=== PATIENT | male | born 1935 | race Caucasian/White ===

== ENCOUNTER 2017-06-23 18:18 | Inpatient (IN) | payer MEDICARE ==
[2017-06-23] MEDS ORDERED: Sodium Chloride 0.9% 1000 ML 1,000 ML IV SCH (19:00)
--- NOTE | 2017-06-23 19:03 | ERPHSYRPT ---
- History of Present Illness Time Seen by Provider: 06/23/17 18:45 Source: patient Exam Limitations: clinical condition Patient Subjective Stated Complaint: black stools since yesterday Triage Nursing Assessment: ambulated to room per self with . skin w/d, color slightly pale, resp easy. denies any dizziness or weakness. denies n/v. is on coumadin Physician History: PATIENT WITH A HISTORY OF ATRIAL FIBRILLATION, HYPERTENSION COMPLAINS OF BLACK STOOLS OVER THE PAST 2 DAYS. DENIES CHEST PAIN, DYSPNEA, ABDOMINAL PAIN, WEAKNESS OR DIZZINESS. Timing/Duration: yesterday Associated Symptoms: denies symptoms Allergies/Adverse Reactions: No Known Drug Allergies Allergy (Verified 06/23/17 18:37) Home Medications: Calcium Carbonate/Vitamin D3 [Calcium 600-Vit D3 200 Tablet] 1 each PO WEEKLY [History] Carvedilol 3.125 mg [Coreg 3.125 MG] 3.125 mg PO BID 04/30/12 [History] Timolol [Betimol] 1 drop OP BID 05/17/14 [History] Bimatoprost 0.01% [Lumigan 0.01% 2.5 ml] 2.5 ml OP HS 06/23/17 [History] Warfarin Sodium [Coumadin] 8 mg PO DAILY 06/23/17 [History] Lisinopril 20 mg [Zestril 20 MG] 20 mg PO DAILY 06/24/17 [History] Hx Tetanus, Diphtheria Vaccination/Date Given: No Hx Influenza Vaccination/Date Given: Yes (2015) Hx Pneumococcal Vaccination/Date Given: Yes - Review of Systems Constitutional: No Fever, No Chills Eyes: No Symptoms Ears, Nose, & Throat: No Symptoms Respiratory: No Symptoms, No Cough, No Dyspnea Cardiac: No Symptoms, No Chest Pain, No Edema, No Syncope Abdominal/Gastrointestinal: Melena, No Abdominal Pain, No Nausea, No Vomiting, No Diarrhea Genitourinary Symptoms: No Dysuria Musculoskeletal: No Symptoms, No Back Pain, No Neck Pain Skin: No Rash Neurological: No Dizziness, No Focal Weakness, No Sensory Changes Psychological: No Symptoms Endocrine: No Symptoms All Other Systems: Reviewed and Negative - Past Medical History Pertinent Past Medical History: Yes Neurological History: No Pertinent History ENT History: Macular Degeneration Cardiac History: Arrhythmia, Hypertension, Other Respiratory History: CHF Endocrine Medical History: Diabetes Type II Musculoskeletal History: Arthritis, Other GI Medical History: No Pertinent History History: No Pertinent History Psycho-Social History: No Pertinent History Male Reproductive Disorders: No Pertinent History Other Medical History: A FIB, 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 - Past Surgical History Past Surgical History: Yes Neuro Surgical History: No Pertinent History Cardiac: Cardiac Stent Respiratory: No Pertinent History Gastrointestinal: Appendectomy Genitourinary: No Pertinent History Musculoskeletal: No Pertinent History Male Surgical History: No Pertinent History Other Surgical History: CARDIAC STENT SEVERAL YEARS, pacemaker in place, 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 - Social History Smoking Status: Former smoker Exposure to second hand smoke: No Drug Use: none Patient Lives Alone: No - Nursing Vital Signs Nursing Vital Signs: Initial Vital Signs Temperature 97.9 F 06/23/17 18:32 Pulse Rate 76 06/23/17 18:32 Respiratory Rate 16 06/23/17 18:32 Blood Pressure 106/52 06/23/17 18:32 O2 Sat by Pulse Oximetry 98 06/23/17 18:32 Pain Scale Pain Intensity 0 - Physical Exam General Appearance: no apparent distress, alert Eye Exam: PERRL/EOMI, eyes nml inspection Ears, Nose, Throat Exam: normal ENT inspection, TMs normal, pharynx normal, moist mucous membranes Neck Exam: normal inspection, non-tender, supple, full range of motion Respiratory Exam: normal breath sounds, lungs clear, No respiratory distress Cardiovascular Exam: regular rate/rhythm, normal heart sounds, normal peripheral pulses Gastrointestinal/Abdomen Exam: soft, normal bowel sounds, No tenderness, No mass Rectal Exam: normal exam, normal rectal tone, black stool Back Exam: normal inspection, normal range of motion, No CVA tenderness, No vertebral tenderness Extremity Exam: normal inspection, normal range of motion, pelvis stable Neurologic Exam: alert, oriented x 3, cooperative, normal mood/affect, nml cerebellar function, nml station & gait, sensation nml, No motor deficits Skin Exam: normal color, warm, dry, No rash Lymphatic Exam: No adenopathy SpO2 Interpretation: normal SpO2: 98 Oxygen Delivery: Room Air - Course EKG Interpreted by Me: RATE, Sinus Rhythm (VENTRICULAR PACED RHYTHM RATE 70) Ordered Tests: Active Orders 24 hr Category Date Time Status Bedrest with BRP/BSC Activity 06/24/17 00:40 Active Admission/Status Order Care 06/24/17 00:40 Active Director Pharmaceutical STAT Care 06/23/17 20:04 Active Code Status Order Care 06/24/17 00:40 Active IV Care Q6H Care 06/24/17 00:40 Active IV Insertion STAT Care 06/23/17 18:55 Completed IV Insertion STAT Care 06/23/17 20:13 Completed Implement CHF Pathway Care 06/24/17 00:40 Active Oxygen-ED Only NASAL CANNULA 2 lpm Care 06/23/17 18:55 Completed Vital Signs Q1H Care 06/24/17 00:40 Active Weight,Daily Q24H Care 06/24/17 00:40 Active BMP AM.LAB Lab 06/24/17 05:08 Completed CBC AM.LAB Lab 06/24/17 05:08 Completed CBC W DIFF Stat Lab 06/23/17 19:10 Completed CBC W DIFF Stat Lab 06/23/17 21:00 Completed CMP Stat Lab 06/23/17 19:10 Completed Occult Blood,Stool Other Stat Lab 06/23/17 19:00 Completed PROTIME WITH INR Stat Lab 06/23/17 19:10 Completed TROPONIN Stat Lab 06/24/17 01:04 Completed EKG DAILY RT 06/24/17 00:40 Completed Oxygen NASAL CANNULA 2 lpm RT 06/24/17 00:40 Active Medication Summary Generic Name Dose Route Start Last Admin Trade Name Freq PRN Reason Stop Dose Admin Sodium Chloride 1,000 mls @ 100 mls/hr 06/23/17 20:15 06/23/17 20:29 Sodium Chloride 0.9% 1000 Ml IV 07/23/17 20:14 Not Given .Q10H STANISLAW Sodium Chloride 1,000 mls @ 50 mls/hr 06/23/17 22:39 06/23/17 23:45 Sodium Chloride 0.9% 1000 Ml IV 06/24/17 18:38 50 mls/hr .Q20H STA Administration Sodium Chloride 500 mls @ 500 mls/hr 06/24/17 03:18 06/24/17 03:27 Sodium Chloride 0.9% 500 Ml IV 06/24/17 04:17 500 mls/hr .Q1H ONE Administration Discontinued Medications Generic Name Dose Route Start Last Admin Trade Name Freq PRN Reason Stop Dose Admin Sodium Chloride 1,000 mls @ 100 mls/hr 06/23/17 19:00 06/23/17 19:10 Sodium Chloride 0.9% 1000 Ml IV 07/23/17 18:59 100 mls/hr .Q10H STANISLAW Administration Sodium Chloride 1,000 mls @ 500 mls/hr 06/23/17 19:50 06/23/17 20:00 Sodium Chloride 0.9% 1000 Ml IV 06/23/17 21:49 500 mls/hr .Q2H STA Administration Sodium Chloride 1,000 mls @ 250 mls/hr 06/23/17 20:30 06/23/17 20:33 Sodium Chloride 0.9% 1000 Ml IV 06/24/17 00:29 250 mls/hr .Q4H STA Administration Pantoprazole Sodium 40 mg 06/23/17 20:18 06/23/17 20:31 Protonix 40 Mg Iv IV 06/23/17 20:19 40 mg STAT ONE Administration Pantoprazole Sodium Confirm 06/23/17 20:27 Protonix 40 Mg Iv Administered 06/23/17 20:28 Dose 40 mg IV .[facility] ONE Phytonadione 10 mg 06/23/17 19:54 06/23/17 20:10 Vitamin K 10 Mg/Ml SQ 06/23/17 19:55 10 mg STAT ONE Administration Phytonadione Confirm 06/23/17 20:09 Vitamin K 10 Mg/Ml Administered 06/23/17 20:10 Dose 10 mg .ROUTE .STK-MED ONE Lab/Rad Data: Laboratory Result Diagrams 06/23/17 21:00 06/23/17 19:10 Laboratory Results 06/23/17 06/23/17 06/23/17 Range/Units 21:00 19:10 19:10 WBC 13.1 H (4.0-10.5) K/mm3 RBC 3.29 L (4.1-5.6) M/mm3 Hgb 9.8 L (12.5-18.0) gm/dl Hct 30.3 L (42-50) % MCV 92.1 (78-100) fl MCH 29.7 (26-32) pg MCHC 32.3 (32-36) g/dl RDW 13.7 (11.5-14.0) % Plt Count 171 (150-450) K/mm3 MPV 11.0 H (6-9.5) fl Gran % 65.2 (36.0-66.0) % Lymphocytes % 23.2 L (24.0-44.0) % Monocytes % 8.0 (0.0-12.0) % Eosinophils % 3.4 (0.00-5.0) % Basophils % 0.2 (0.0-0.4) % Basophils # 0.02 (0-0.4) INR (0.8-3.0) Sodium (136-145) mEq/L Potassium (3.5-5.1) mEq/L Chloride (98-107) mEq/L Carbon Dioxide (21-32) mEq/L Anion Gap (5-15) MEQ/L BUN (9-20) mg/dL Creatinine (0.55-1.30) mg/dl Estimated GFR ML/MIN Glucose (70-110) MG/DL Calcium (8.5-10.1) mg/dL Total Bilirubin (0.2-1.0) mg/dL AST (15-37) U/L ALT (12-78) U/L Alkaline Phosphatase (46-116) U/L Serum Total Protein (6.4-8.2) gm/dL Albumin (3.4-5.0) g/dL Stool Occult Blood (Negative) ABO Group Rh Factor Antibody Screen (NEGATIVE) Crossmatch COMPATIBLE COMPATIBLE (COMPATIBLE) 06/23/17 06/23/17 06/23/17 Range/Units 19:10 19:10 19:10 WBC (4.0-10.5) K/mm3 RBC (4.1-5.6) M/mm3 Hgb (12.5-18.0) gm/dl Hct (42-50) % MCV (78-100) fl MCH (26-32) pg MCHC (32-36) g/dl RDW (11.5-14.0) % Plt Count (150-450) K/mm3 MPV (6-9.5) fl Gran % (36.0-66.0) % Lymphocytes % (24.0-44.0) % Monocytes % (0.0-12.0) % Eosinophils % (0.00-5.0) % Basophils % (0.0-0.4) % Basophils # (0-0.4) INR 4.47 H (0.8-3.0) Sodium (136-145) mEq/L Potassium (3.5-5.1) mEq/L Chloride (98-107) mEq/L Carbon Dioxide (21-32) mEq/L Anion Gap (5-15) MEQ/L BUN (9-20) mg/dL Creatinine (0.55-1.30) mg/dl Estimated GFR ML/MIN Glucose (70-110) MG/DL Calcium (8.5-10.1) mg/dL Total Bilirubin (0.2-1.0) mg/dL AST (15-37) U/L ALT (12-78) U/L Alkaline Phosphatase (46-116) U/L Serum Total Protein (6.4-8.2) gm/dL Albumin (3.4-5.0) g/dL Stool Occult Blood (Negative) ABO Group O Rh Factor NEGATIVE Antibody Screen NEGATIVE (NEGATIVE) Crossmatch COMPATIBLE (COMPATIBLE) 06/23/17 06/23/17 06/23/17 Range/Units 19:10 19:10 19:00 WBC 13.0 H (4.0-10.5) K/mm3 RBC 3.41 L (4.1-5.6) M/mm3 Hgb 10.1 L (12.5-18.0) gm/dl Hct 31.3 L (42-50) % MCV 91.8 (78-100) fl MCH 29.6 (26-32) pg MCHC 32.3 (32-36) g/dl RDW 13.9 (11.5-14.0) % Plt Count 192 (150-450) K/mm3 MPV 11.1 H (6-9.5) fl Gran % 70.2 H (36.0-66.0) % Lymphocytes % 19.8 L (24.0-44.0) % Monocytes % 6.6 (0.0-12.0) % Eosinophils % 3.2 (0.00-5.0) % Basophils % 0.2 (0.0-0.4) % Basophils # 0.03 (0-0.4) INR (0.8-3.0) Sodium 135 L (136-145) mEq/L Potassium 5.3 H (3.5-5.1) mEq/L Chloride 103 (98-107) mEq/L Carbon Dioxide 21.0 (21-32) mEq/L Anion Gap 15.9 H (5-15) MEQ/L BUN 131 H (9-20) mg/dL Creatinine 2.52 H (0.55-1.30) mg/dl Estimated GFR 26 ML/MIN Glucose 121 H (70-110) MG/DL Calcium 8.2 L (8.5-10.1) mg/dL Total Bilirubin 0.50 (0.2-1.0) mg/dL AST 12 L (15-37) U/L ALT 10 L (12-78) U/L Alkaline Phosphatase 74 (46-116) U/L Serum Total Protein 6.2 L (6.4-8.2) gm/dL Albumin 3.2 L (3.4-5.0) g/dL Stool Occult Blood POSITIVE (Negative) ABO Group Rh Factor Antibody Screen (NEGATIVE) Crossmatch (COMPATIBLE) - Progress Progress Note: 06/23/17 23:22 STOOL OCCULT + FOR BLOOD. VITAMIN K 10MG SUQ FOR INR 4.47 WHILE ON COUMADIN. PATIENT HAD EPISODE OF HYPOTENSION SPB-85, FOLLOWED BY FLUID BOLUS 1 LITER SPB- 90, PATIENT HGB 10.1 REPEATED 2 HOURS LATER HGB 9.8, GIVEN I UNIT PRBC FOR SBP- [address] Rosales (DISCUSSED WITH DR ROSALES AT 2230 FOR ADMISSION) - Departure Time of Disposition: 23:55 Departure Disposition: In-patient Admission Clinical Impression: GASTROINTESTINAL BLEEDING, SYMPTOMATIC ANEMIA Condition: Stable Critical Care Time: No Critical Care Time(excluding separately billable procedures): 30-74 minutes
[2017-06-23 19:35] LABS: BASOPHIL % 0.2 % (0.0-0.4); Eosinophil % 3.2 % (0.00-5.0); Granulocytes % 70.2 % (36.0-66.0); Lymphocytes % 19.8 % (24.0-44.0); Mean Cell Volume 91.8 fl (78-100); Mean Corpuscular Hemoglobin 29.6 pg (26-32); Mean Platelet Volume 11.1 fl (6-9.5); Monocytes % 6.6 % (0.0-12.0); Platelet Count 192 K/mm3 (150-450); Red Blood Count 3.41 M/mm3 (4.1-5.6); Red Cell Distribution Width 13.9 % (11.5-14.0)
[2017-06-23 19:44] LABS: ALBUMIN 3.2 g/dL (3.4-5.0); ANION GAP 15.9 MEQ/L (5-15); BILIRUBIN,TOTAL 0.5 mg/dL (0.2-1.0); Total Protein 6.2 gm/dL (6.4-8.2)
[2017-06-23 19:45] LABS: INR 4.47 (0.8-3.0); PROTIME 51.3 SECONDS (8.83-12.87); Potassium 5.3 mEq/L (3.5-5.1)
[2017-06-23] MEDS ORDERED: Sodium Chloride 0.9% 1000 ML 1,000 ML IV STA ×3 (19:50→22:39)
[2017-06-23] MEDS ORDERED: Vitamin K 10 MG/ML SQ ONE (19:54)
[2017-06-23] MEDS ORDERED: Vitamin K 10 MG/ML ONE (20:09)
[2017-06-23] MEDS ORDERED: PROTONIX 40 MG IV IV ONE ×2 (20:18→20:27)
[2017-06-23] MEDS: Sodium Chloride 0.9% 1000 ML 1,000 ML IV SCH (20:29)
[2017-06-23 21:09] LABS: BASOPHIL % 0.2 % (0.0-0.4); Eosinophil % 3.4 % (0.00-5.0); Granulocytes % 65.2 % (36.0-66.0); Lymphocytes % 23.2 % (24.0-44.0); Mean Cell Volume 92.1 fl (78-100); Platelet Count 171 K/mm3 (150-450); Red Blood Count 3.29 M/mm3 (4.1-5.6); Red Cell Distribution Width 13.7 % (11.5-14.0); White Blood Count 13.1 K/mm3 (4.0-10.5)
[2017-06-23 21:10] LABS: Mean Corpuscular Hemoglobin 29.7 pg (26-32)
[2017-06-24 02:39] LABS: Mean Cell Volume 91.1 fl (78-100); Mean Platelet Volume 11.1 fl (6-9.5); Platelet Count 171 K/mm3 (150-450); Red Blood Count 3.36 M/mm3 (4.1-5.6); Red Cell Distribution Width 13.9 % (11.5-14.0); White Blood Count 10.8 K/mm3 (4.0-10.5)
[2017-06-24 02:40] LABS: Mean Corpuscular Hemoglobin 29.7 pg (26-32)
[2017-06-24] MEDS ORDERED: Sodium Chloride 0.9% 500 ML 500 ML IV ONE (03:18)
[2017-06-24 05:41] LABS: Mean Cell Volume 91.5 fl (78-100); Mean Platelet Volume 10.8 fl (6-9.5); Platelet Count 148 K/mm3 (150-450); Red Blood Count 2.93 M/mm3 (4.1-5.6); Red Cell Distribution Width 13.9 % (11.5-14.0)
[2017-06-24 05:44] LABS: Mean Corpuscular Hemoglobin 29.6 pg (26-32)
[2017-06-24 06:02] LABS: ANION GAP 13.8 MEQ/L (5-15); Carbon Dioxide 20.5 mEq/L (21-32); Potassium 4.5 mEq/L (3.5-5.1)
[2017-06-24] MEDS: Sodium Chloride 0.9% 1000 ML 1,000 ML IV SCH ×2 (07:01→17:05)
[2017-06-24] MEDS ORDERED: PROTONIX 40 MG IV IV ONE (07:49)
[2017-06-24] MEDS ORDERED: Lactated Ringers 1,000 ML IV ONE (07:50)
[2017-06-24] MEDS ORDERED: Lactated Ringers 500 ML IV SCH (08:00)
[2017-06-24] MEDS ORDERED: DIPRIVAN 200 MG/20 ML IV ONE (08:00)
--- NOTE | 2017-06-24 08:03 | PCM.HP ---
History of Present Illness - Chief Complaint Chief Complaint: GI bleed Date: 06/24/17 History of Present Illness: Mr.WILLIAMS MATSON is a 81 year old male. who was having epigastric pain and nausea last week the pain improved but then developed black stools. He is anticoagulated for atrial fibrillation. He states other then the black stools he was feeling ok prior to presentation. he has no pain currently. - Review of Systems Constitutional: Fatigue, No Fever, No Chills Eyes: No Symptoms Ears, Nose, & Throat: No Symptoms Respiratory: No Cough, No Short Of Breath Cardiac: No Chest Pain, No Edema, No Syncope Abdominal/Gastrointestinal: No Abdominal Pain, No Nausea, No Vomiting, No Diarrhea Genitourinary Symptoms: No Dysuria Musculoskeletal: No Back Pain, No Neck Pain Skin: No Rash Neurological: No Dizziness, No Focal Weakness, No Sensory Changes Psychological: No Symptoms Endocrine: No Symptoms Hematologic/Lymphatic: No Symptoms Immunological/Allergic: No Symptoms Medications & Allergies Home Medications: Home Medication List Calcium Carbonate/Vitamin D3 [Calcium 600-Vit D3 200 Tablet] 1 each PO WEEKLY [History Confirmed 06/24/17] Carvedilol 3.125 mg [Coreg 3.125 MG] 3.125 mg PO BID 04/30/12 [History Confirmed 06/23/17] Timolol [Betimol] 1 drop OP BID 05/17/14 [History Confirmed 06/23/17] Bimatoprost 0.01% [Lumigan 0.01% 2.5 ml] 2.5 ml OP HS 06/23/17 [History Confirmed 06/23/17] Warfarin Sodium [Coumadin] 8 mg PO DAILY 06/23/17 [History Confirmed 06/23/17] Lisinopril 20 mg [Zestril 20 MG] 20 mg PO DAILY 06/24/17 [History Confirmed 06/24/17] Allergies/Adverse Reactions: Allergies Allergy/AdvReac Type Severity Reaction Status Date / Time No Known Drug Allergies Allergy Verified 06/23/17 18:37 - Past Medical History Past Medical History: Yes Neurological History: No Pertinent History ENT History: Macular Degeneration Cardiac History: Arrhythmia, Hypertension, Other Respiratory History: CHF Endocrine Medical History: Diabetes Type II Musculoskelatal History: Arthritis, Other GI Medical History: No Pertinent History History: No Pertinent History Pyscho-Social History: No Pertinent History Male Reproductive Disorders: No Pertinent History Comment: A FIB, 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 - Past Surgical History Past Surgical History: Yes Neuro Surgical History: No Pertinent History Cardiac History: Cardiac Stent Respiratory Surgery: No Pertinent History GI Surgical History: Appendectomy Genitourinary Surgical Hx: No Pertinent History Musculskeletal Surgical Hx: No Pertinent History Male Surgical History: No Pertinent History Other Surgical History: CARDIAC STENT SEVERAL YEARS, pacemaker in place, 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 - Social History Smoking Status: Former smoker Exposure to second hand smoke: No Alcohol: Weekly Drug Use: none - Physical Exam Vital Signs: Vital Signs - 24 hr Temp Pulse Resp BP Pulse Ox 06/24/17 06:55 72 16 101/58 100 06/24/17 06:38 98 06/24/17 06:19 73 11 L 71/54 100 06/24/17 06:00 70 12 78/44 99 06/24/17 05:00 75 21 81/49 98 06/24/17 04:32 69 14 94/48 95 06/24/17 04:15 72 79/48 06/24/17 03:59 98.5 F 72 15 75/51 98 06/24/17 03:25 71 20 98 06/24/17 03:15 84/50 06/24/17 03:00 70 12 78/45 98 06/24/17 02:30 77 15 84/59 98 06/24/17 02:00 70 24 83/48 99 06/24/17 01:00 70 20 95/58 100 06/24/17 00:45 98.4 F 86 15 95/55 96 06/24/17 00:40 98 General Appearance: no apparent distress, alert Neurologic Exam: oriented x 3, cooperative, other (Drowsy) Eye Exam: PERRL/EOMI, eyes nml inspection, pale conjunctivae Ears, Nose, Throat Exam: normal ENT inspection, pharynx normal, moist mucous membranes Neck Exam: normal inspection, non-tender, supple, full range of motion Respiratory Exam: normal breath sounds, lungs clear, No respiratory distress Cardiovascular Exam: regular rate/rhythm, normal heart sounds, normal peripheral pulses, other (paced rhythm) Gastrointestinal/Abdomen Exam: soft, normal bowel sounds, No tenderness, No distention, No mass, No guarding, No ecchymosis Back Exam: normal inspection, normal range of motion, No CVA tenderness, No vertebral tenderness Extremity Exam: normal inspection, normal range of motion, pelvis stable Skin Exam: normal color, warm, dry, No rash Lymphatic Exam: No adenopathy Results - Labs Lab/Micro Results: Lab Results-Last 24 Hours 06/24/17 06/24/17 06/24/17 Range/Units 01:04 02:20 05:08 WBC 10.8 H 9.0 (4.0-10.5) K/mm3 RBC 3.36 L 2.93 L (4.1-5.6) M/mm3 Hgb 10.0 L 8.7 L (12.5-18.0) gm/dl Hct 30.6 L 26.8 L (42-50) % MCV 91.1 91.5 (78-100) fl MCH 29.7 29.6 (26-32) pg MCHC 32.7 32.5 (32-36) g/dl RDW 13.9 13.9 (11.5-14.0) % Plt Count 171 148 L (150-450) K/mm3 MPV 11.1 H 10.8 H (6-9.5) fl Sodium (136-145) mEq/L Potassium (3.5-5.1) mEq/L Chloride (98-107) mEq/L Carbon Dioxide (21-32) mEq/L Anion Gap (5-15) MEQ/L BUN (9-20) mg/dL Creatinine (0.55-1.30) mg/dl Estimated GFR ML/MIN Glucose (70-110) MG/DL Calcium (8.5-10.1) mg/dL Troponin I 0.024 (0.000-0.056) ng/ml 06/24/17 Range/Units 05:08 WBC (4.0-10.5) K/mm3 RBC (4.1-5.6) M/mm3 Hgb (12.5-18.0) gm/dl Hct (42-50) % MCV (78-100) fl MCH (26-32) pg MCHC (32-36) g/dl RDW (11.5-14.0) % Plt Count (150-450) K/mm3 MPV (6-9.5) fl Sodium 141 (136-145) mEq/L Potassium 4.5 (3.5-5.1) mEq/L Chloride 111 H (98-107) mEq/L Carbon Dioxide 20.5 L (21-32) mEq/L Anion Gap 13.8 (5-15) MEQ/L BUN 125 H (9-20) mg/dL Creatinine 2.13 H (0.55-1.30) mg/dl Estimated GFR 32 ML/MIN Glucose 96 (70-110) MG/DL Calcium 7.6 L (8.5-10.1) mg/dL Troponin I (0.000-0.056) ng/ml Assessment/Plan (1) GI bleed Current Visit: Yes Status: Acute Assessment & Plan: was transfused 1 U PRBC and hgb continued to drop this am 3 hour ago check was down from the time of tranfusion now bp lower systolic 77 pallor suspect ongoing upper gi bleed with the worsening and previous history give additional 40 mg protonix stat now and start protonix gtt tranfuse 2 U PRBC now check h and h now and post consult for EGD Code(s): K92.2 - GASTROINTESTINAL HEMORRHAGE, UNSPECIFIED (2) Supratherapeutic INR Current Visit: Yes Status: Acute Assessment & Plan: was given vitamin K no ffp given repeat inr now Code(s): R79.1 - ABNORMAL COAGULATION PROFILE (3) Acute kidney injury Current Visit: Yes Status: Acute Assessment & Plan: secondary likely to atn from hypotension/ blood loss hold pernell inhibitor Code(s): N17.9 - ACUTE KIDNEY FAILURE, UNSPECIFIED (4) Chronic diastolic CHF (congestive heart failure) Current Visit: Yes Status: Acute Assessment & Plan: currently no rales or edema Code(s): I50.32 - CHRONIC DIASTOLIC (CONGESTIVE) HEART FAILURE
[2017-06-24 08:08] LABS: PROTIME 63.4 SECONDS (8.83-12.87)
[2017-06-24 08:12] LABS: INR 5.66 (0.8-3.0)
[2017-06-24] MEDS: PROTONIX 40 MG IV*** 80 MG in Sodium Chloride 0.9% 500 ML 500 ML IV SCH ×2 (08:25→20:05)
[2017-06-24] MEDS ORDERED: SODIUM CHLORIDE 0.9% IV ONE (08:35)
[2017-06-24] MEDS ORDERED: VITAMIN K IV ONE (08:35)
--- NOTE | 2017-06-24 13:26 | XRAY ---
Indication: CHF. Comparison: May 08, 2007. Portable chest again demonstrates chronic right hemidiaphragm elevation. No focal infiltrate, consolidation, or large effusion. Heart is within normal limits for AP portable technique. Bony thorax intact. Impression: Nonacute chest with chronic feature.
[2017-06-24] MEDS: Zofran 4 MG/2 ML VIAL IV PRN (14:48)
[2017-06-24 16:40] LABS: INR 1.67 (0.8-3.0)
[2017-06-24] MEDS ORDERED: Sodium Chloride 0.9% 1000 ML 1,000 ML ONE (17:16)
[2017-06-24] MEDS ORDERED: EPINEPHRINE 1MG/ML AMP ONE (17:16)
[2017-06-24] MEDS ORDERED: NON-FORMULARY ITEM (Timolol [Betimol] 1 DROP) OP SCH ×2 (22:00)
[2017-06-24] MEDS: COSOPT OPHTHALMIC 10 ML OP SCH ×2 (22:29→22:30)
[2017-06-24] MEDS: LUMIGAN 0.01% 2.5 ML OP SCH (23:01)
[2017-06-25] MEDS: Sodium Chloride 0.9% 1000 ML 1,000 ML IV SCH (02:29)
[2017-06-25] MEDS: Zofran 4 MG/2 ML VIAL IV PRN (05:52)
[2017-06-25 06:08] LABS: Mean Cell Volume 90.9 fl (78-100); Mean Corpuscular Hemoglobin 29.6 pg (26-32); Mean Platelet Volume 11.3 fl (6-9.5); Platelet Count 139 K/mm3 (150-450); Red Blood Count 3.31 M/mm3 (4.1-5.6); Red Cell Distribution Width 15.2 % (11.5-14.0)
[2017-06-25 06:34] LABS: ALBUMIN 2.8 g/dL (3.4-5.0); ANION GAP 12.2 MEQ/L (5-15); BILIRUBIN,TOTAL 0.8 mg/dL (0.2-1.0); Carbon Dioxide 21.2 mEq/L (21-32); Potassium 4.8 mEq/L (3.5-5.1); Total Protein 5.4 gm/dL (6.4-8.2)
[2017-06-25] MEDS: PROTONIX 40 MG IV*** 80 MG in Sodium Chloride 0.9% 500 ML 500 ML IV SCH ×2 (06:57→16:55)
--- NOTE | 2017-06-25 07:05 | PCM.NOTE ---
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) OBJECTIVE DATA Vital Signs: Vital Signs - 24 hr Temp Pulse Resp BP BP Pulse Ox 06/25/17 04:00 98.5 F 70 13 116/68 99 06/25/17 00:00 97.8 F 72 14 126/67 98 06/24/17 20:00 97.5 F 78 13 115/67 97/60 96 06/24/17 17:54 75 16 125/71 99 06/24/17 16:50 71 06/24/17 16:48 98.5 F 70 16 98/61 97/60 100 06/24/17 15:53 98.5 F 70 16 98/61 100 06/24/17 15:30 70 06/24/17 14:50 98.4 F 71 20 112/68 99 06/24/17 14:00 97.7 F 70 16 97/60 100 06/24/17 13:00 97.7 F 72 16 98/58 100 06/24/17 12:00 97.5 F 74 16 76/48 99 06/24/17 11:18 97.5 F 73 17 93/48 100 06/24/17 11:00 97.5 F 73 17 93/48 100 06/24/17 10:00 97.7 F 72 17 90/54 100 06/24/17 09:41 97.7 F 72 17 90/54 100 06/24/17 09:20 97.9 F 70 17 78/48 99 06/24/17 08:00 97.7 F 70 16 91/46 100 Pain Assessment - Last Documented Pain Intensity 0 Pain Scale Used 0-10 Pain Scale Intake and Output: Intake & Output 06/22/17 06/23/17 06/24/17 06/25/17 11:59 11:59 11:59 11:59 Intake Total 6779 1277 Output Total 7267 8640 Balance 526 4607 Weight 86.2 kg 85.6 kg Lab Results: Lab Results-Last 24 Hours 06/24/17 06/24/17 06/24/17 Range/Units 05:00 05:00 08:11 WBC (4.0-10.5) K/mm3 RBC (4.1-5.6) M/mm3 Hgb 8.9 L (12.5-18.0) gm/dl Hct 27.4 L (42-50) % MCV (78-100) fl MCH (26-32) pg MCHC (32-36) g/dl RDW (11.5-14.0) % Plt Count (150-450) K/mm3 MPV (6-9.5) fl INR 5.66 H* (0.8-3.0) APTT 49.0 H (24.1-36.1) SECONDS 06/24/17 06/24/17 06/25/17 Range/Units 14:49 16:10 05:30 WBC 7.0 (4.0-10.5) K/mm3 RBC 3.31 L (4.1-5.6) M/mm3 Hgb 11.7 L 9.8 L (12.5-18.0) gm/dl Hct 36.2 L 30.1 L (42-50) % MCV 90.9 (78-100) fl MCH 29.6 (26-32) pg MCHC 32.6 (32-36) g/dl RDW 15.2 H (11.5-14.0) % Plt Count 139 L (150-450) K/mm3 MPV 11.3 H (6-9.5) fl INR 1.67 (0.8-3.0) APTT (24.1-36.1) SECONDS Radiology Exams: Radiology Procedures Category Date Time Status Portable Chest [CHEST 1 VIEW (PORTABLE)] Routine Exams 06/24/17 12:44 Completed Assessment/Plan (1) Peptic ulcer Current Visit: Yes Status: Acute Assessment & Plan: on protonix dripp yesterday with his persistent hypotension despite fluid boluses and his, comorbidities and somnolence he was transfused 2 Units in the am with FFP over concern for ongoing upper GI bleeding with the persistent elevated inr. His heart rate was unreliable marker of hydrodynamics with the beta kimberly and the paced rhythm steady at 70 throughout the stay. This improved his bp and inr and he was taken for endoscopy by Dr. Law. continue protonix drip at 8mg/h advance diet to liquid Code(s): K27.9 - PEPTIC ULC, SITE UNSP, UNSP AC OR CHR, W/O HEMOR OR PERF (2) GI bleed Current Visit: Yes Status: Acute Code(s): K92.2 - GASTROINTESTINAL HEMORRHAGE, UNSPECIFIED (3) Supratherapeutic INR Current Visit: Yes Status: Acute Code(s): R79.1 - ABNORMAL COAGULATION PROFILE (4) Acute kidney injury Current Visit: Yes Status: Acute Assessment & Plan: likely secondary to atn from hypotension from gi bleed improving likely the uremia from the upper Gi bleeding is contributing to somnolence this is improving today continue to monitor output BUN improved from 124 to 80 continue to hold pernell inhibitors Code(s): N17.9 - ACUTE KIDNEY FAILURE, UNSPECIFIED (5) Chronic diastolic CHF (congestive heart failure) Current Visit: Yes Status: Acute Code(s): I50.32 - CHRONIC DIASTOLIC ( CONGESTIVE) HEART FAILURE
[2017-06-25 07:10] LABS: INR 1.31 (0.8-3.0); PROTIME 14.8 SECONDS (8.83-12.87)
--- NOTE | 2017-06-25 07:42 | CONS ---
The patient is seen for Dr. Choudhury who was transcription for our group today on 06/24/2017. CONSULT DATE: 06/24/2017 HISTORY: An 81 year-old gentleman apparently has been having epigastric pains for a few short days. He had some dark stools. He is anticoagulated. 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 It sounds like he had atrial fibrillation. He denies any history of pulmonary embolism or heart valve replacement in the past. He had dark stools over the past couple of days. He apparently was admitted yesterday according to the patient. He was begun on some vitamin K and some vitamin K again today. I was asked to surgical consult on. I was doing some other cases here and asked that I check on the patient. PAST MEDICAL HISTORY: Atrial fibrillation, hypertension, diabetes, arthritis, macular degeneration. He had some heart disease in the past. He had coronary stent in the past. He had a pacemaker in the past. PAST SURGICAL HISTORY: He had pacemaker. 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 He had coronary stents in the past. He does not think that he has ever had an upper endoscopy. He had a lower endoscopy years ago, according to the patient. He is a little vague on the details. MEDICATIONS: He has been on Atenolol drops, carvedilol, Lumigan drops. He had been on Coumadin prior admissions as well as Zestril. ALLERGIES: NKDA. FAMILY HISTORY: Negative in regards to this problem. SOCIAL HISTORY: No alcohol abuse. Former smoker. REVIEW OF SYSTEMS: Twelve systems reviewed per admission assessment pertinent for as noted above. He denies any current abdominal pain. No fever or chills. No chest pain. He has a transient blood pressure in the 70's up to the 90's after blood transfusion earlier. LAB DATA AND TESTS: It looks like his hemoglobin was 8.7 originally. He had some pressure issues. It looks like he had a hemoglobin at 0200 hours that dropped to 8.7 so he was given a transfusion. His hemoglobin was up to 11.7 after a couple units of packed cells. He did have PLT of 148,000 to 171,000. PHYSICAL EXAMINATION: GENERAL: He has been afebrile. Pulse has been in the 70's to 80's. Blood pressure in the mid 70's to 101 over 40's and 50's. IMPRESSION: Question of GI bleed with dark stools. Question whether upper gastritis, ulcer disease, esophagitis versus other etiology versus telangiectasia or other etiology versus lower GI source. He denies any bright bloody stools. He had been given blood. Again his international normalized ratio was 5 earlier today. I felt he was not a candidate to consider endoscopy at that point but he was given vitamin K and he was given fresh frozen plasma. Dr. Lopez would like to consider endoscopy earlier than later if possible. Therefore he just now finally gotten finished with his fresh frozen plasma, waiting on repeat international normalized ratio. If he is safe enough to proceed with endoscopy will proceed he will stay NPO this afternoon and will proceed with upper endoscopy. General risk of bleeding, infection, small risk of bowel injury or perforation possibly requiring other procedures, ongoing morbidity and possibility of inability to diagnose the etiology of his symptoms possibly requiring bleeding scan or other intervention, general risk of anesthesia or sedation but not limited to. I will await results of international normalized ratio.
[2017-06-25] MEDS: Dextrose 5% -0.45 NaCl 1000 ML 1,000 ML IV SCH (08:04)
--- NOTE | 2017-06-25 09:48 | OP ---
SURGERY DATE/TIME: 06/24/2017 1700 PREOPERATIVE DIAGNOSIS: Question upper GI bleed, anemia, history of anticoagulation. POSTOPERATIVE DIAGNOSES: 1) Duodenal ulcer, recent bleeding. 2) Erosive gastritis. 3) Short segment of mild distal gastroesophagitis. PROCEDURES: 1) EGD with cold biopsy of the antrum for Helicobacter pylori. 2) Epinephrine injection recent bleeding ulcer base with gold probe injected. SURGEON: Dr. Adam Law. ANESTHESIA: MAC. ESTIMATED BLOOD LOSS: Minimal. INDICATIONS: As noted above. Risks and benefits explained in detail and not limited to and consent obtained. DESCRIPTION OF PROCEDURE AND FINDINGS: The patient is taken to the operating room. After waiting for anesthesia to become available, MAC anesthesia was introduced. After official time out and no disagreement with planned procedure, a bite block positioned. Video gastroscope easily passed down the esophagus. Gastroesophageal junction was about 43 cm. There was short segment of mild distal gastroesophagitis. No evidence of any obvious mass. No evidence of any Vargas's. The scope was passed back down in the stomach. There was some erosive gastritis. No signs of any large polyps or masses. No signs of any large ulcers in the stomach. He did have erosive gastritis though. The scope is passed into the duodenal bulb. There was small amount of old blood. Distal aspect between the bulb and the second portion of the duodenum, there was a deep ulcer crater with some clot. It was felt this had been recently bleeding. The scope was passed there. The second and third portion of the duodenum were grossly unremarkable. It was felt with this ulcer crater he would benefit from some epinephrine injection around the base to reduce the risk of recurrent bleeding given the significant size of this ulcer the gold probe injector needle with the epinephrine. Gold probe injector needle carefully inserted around three or four areas around the base of this ulcer. At this point appeared to have good hemostasis. No active bleeding currently. Scope pulled back in the stomach. Cold biopsy taken for Helicobacter pylori. On retroflex there did not appear to be any obvious large hernia next to the gastroesophageal junction. The scope stayed in the gastroesophageal junction and noted to be 43 cm. With a very short segment of distal gastroesophagitis, given his bleeding and history of anticoagulation that had been corrected as he had international normalized ratio of 5 earlier. It was not warranted to biopsy the very short segment of distal gastroesophagitis to reduce the risk of bleeding source. The remainder of the esophagus grossly unremarkable. There were some tertiary contractions. No signs of any obvious masses. No signs of Vargas's or any other mucosal lesions other than the short segment of distal gastroesophagitis. The scope is withdrawn. The patient tolerated the procedure well. Again, no active current bleeding. The area had been injected with epinephrine to hopefully reduce the risk of recurrent bleeding. I discussed with the family. He is to stay on proton pump inhibitor, holding the blood thinners for a short term and avoid any NSAID's, aspirin, Motrin or steroids currently. They understood that he could rebleed and possibly need to have another intervention. The patient was seen for Dr. Choudhury who was business analysis consultant for our group today and asked that I stop by and see the patient.
[2017-06-25] MEDS: COSOPT OPHTHALMIC 10 ML OP SCH ×2 (10:42→20:09)
[2017-06-25] MEDS: LUMIGAN 0.01% 2.5 ML OP SCH (23:46)
[2017-06-26] MEDS: PROTONIX 40 MG IV*** 80 MG in Sodium Chloride 0.9% 500 ML 500 ML IV SCH ×2 (02:35→13:01)
[2017-06-26] MEDS: Dextrose 5% -0.45 NaCl 1000 ML 1,000 ML IV SCH (02:35)
[2017-06-26 05:58] LABS: Mean Cell Volume 92.5 fl (78-100); Mean Platelet Volume 10.8 fl (6-9.5); Platelet Count 143 K/mm3 (150-450); Red Blood Count 3.19 M/mm3 (4.1-5.6); Red Cell Distribution Width 15.3 % (11.5-14.0); White Blood Count 7.1 K/mm3 (4.0-10.5)
[2017-06-26 06:08] LABS: Mean Corpuscular Hemoglobin 29.7 pg (26-32)
[2017-06-26 06:29] LABS: INR 1.22 (0.8-3.0); PROTIME 13.8 SECONDS (8.83-12.87)
[2017-06-26 06:31] LABS: ANION GAP 11.2 MEQ/L (5-15); Carbon Dioxide 23.4 mEq/L (21-32); Potassium 4.6 mEq/L (3.5-5.1)
--- NOTE | 2017-06-26 07:35 | PCM.NOTE ---
Date and Time: 06/26/17730 Subjective Assessment: much more awake this am feeling better no pain hungry now no nausea no bowel movement yesterday Objective Exam General Appearance: no apparent distress, alert Neurologic Exam: alert, oriented x 3, cooperative, normal mood/affect, nml cerebellar function, sensation nml, No motor deficits Skin Exam: normal color, warm, dry Eye Exam: PERRL, EOMI, eyes nml inspection Ears, Nose, Throat Exam: normal ENT inspection, pharynx normal, moist mucous membranes Neck Exam: normal inspection, non-tender, supple, full range of motion Respiratory Exam: normal breath sounds, lungs clear, No respiratory distress Cardiovascular Exam: regular rate/rhythm, normal heart sounds Gastrointestinal/Abdomen Exam: soft, No tenderness, No mass Extremity Exam: normal range of motion, other (previous left leg amputation) Back Exam: normal inspection, normal range of motion, No CVA tenderness, No vertebral tenderness Male Genitalia Exam: deferred Rectal Exam: deferred OBJECTIVE DATA Vital Signs: Vital Signs - 24 hr Temp Pulse Resp BP Pulse Ox 06/26/17 07:17 93 L 06/26/17 07:00 71 113/64 93 L 06/26/17 04:00 72 06/26/17 02:30 75 20 113/64 98 06/25/17 23:54 99 06/25/17 23:49 75 06/25/17 23:00 72 15 109/66 99 06/25/17 20:12 70 06/25/17 19:52 98.2 F 70 22 104/61 97 06/25/17 18:00 98.6 F 75 14 104/51 98 06/25/17 17:00 98.6 F 71 14 110/55 98 06/25/17 16:00 98.6 F 71 14 120/65 98 06/25/17 15:10 98.7 F 71 14 115/67 98 06/25/17 13:46 98.5 F 70 14 100/59 98 06/25/17 13:00 98.5 F 79 19 106/61 98 06/25/17 12:05 98.5 F 71 15 118/65 98 06/25/17 11:46 75 06/25/17 11:00 98.4 F 72 13 104/59 99 06/25/17 10:00 98.4 F 71 15 97/55 99 06/25/17 09:00 98.3 F 69 16 108/61 99 06/25/17 07:37 98.3 F 70 20 106/57 99 Pain Assessment - Last Documented Pain Intensity 0 Pain Scale Used 0-10 Pain Scale Intake and Output: Intake & Output 06/23/17 06/24/17 06/25/17 06/26/17 11:59 11:59 11:59 11:59 Intake Total 1666 4077 3119 Output Total 1140 9930 1870 Balance 526 2347 1249 Weight 86.2 kg 85.6 kg 84.4 kg Lab Results: Lab Results-Last 24 Hours 06/25/17 06/26/17 06/26/17 Range/Units 05:30 05:30 05:30 WBC 7.1 (4.0-10.5) K/mm3 RBC 3.19 L (4.1-5.6) M/mm3 Hgb 9.5 L (12.5-18.0) gm/dl Hct 29.5 L (42-50) % MCV 92.5 (78-100) fl MCH 29.7 (26-32) pg MCHC 32.2 (32-36) g/dl RDW 15.3 H (11.5-14.0) % Plt Count 143 L (150-450) K/mm3 MPV 10.8 H (6-9.5) fl INR 1.31 (0.8-3.0) Sodium 144 (136-145) mEq/L Potassium 4.6 (3.5-5.1) mEq/L Chloride 114 H (98-107) mEq/L Carbon Dioxide 23.4 (21-32) mEq/L Anion Gap 11.2 (5-15) MEQ/L BUN 39 H (9-20) mg/dL Creatinine 1.40 H (0.55-1.30) mg/dl Estimated GFR 52 ML/MIN Glucose 98 (70-110) MG/DL Calcium 7.9 L (8.5-10.1) mg/dL 06/26/17 Range/Units 05:30 WBC (4.0-10.5) K/mm3 RBC (4.1-5.6) M/mm3 Hgb (12.5-18.0) gm/dl Hct (42-50) % MCV (78-100) fl MCH (26-32) pg MCHC (32-36) g/dl RDW (11.5-14.0) % Plt Count (150-450) K/mm3 MPV (6-9.5) fl INR 1.22 (0.8-3.0) Sodium (136-145) mEq/L Potassium (3.5-5.1) mEq/L Chloride (98-107) mEq/L Carbon Dioxide (21-32) mEq/L Anion Gap (5-15) MEQ/L BUN (9-20) mg/dL Creatinine (0.55-1.30) mg/dl Estimated GFR ML/MIN Glucose (70-110) MG/DL Calcium (8.5-10.1) mg/dL Radiology Exams: Radiology Procedures Category Date Time Status Portable Chest [CHEST 1 VIEW (PORTABLE)] Routine Exams 06/24/17 12:44 Completed Assessment/Plan (1) Duodenal ulcer with hemorrhage Current Visit: Yes Status: Acute Assessment & Plan: continue the protonix gtt for 72 hours given the size and depth and severity of ulcer advance diet to regular today ok to transfer to floor on tele repeat labs in am if doing well ok to d/c to home h. pylori testing pending Code(s): K26.4 - CHRONIC OR UNSPECIFIED DUODENAL ULCER WITH HEMORRHAGE (2) GI bleed Current Visit: Yes Status: Acute Code(s): K92.2 - GASTROINTESTINAL HEMORRHAGE, UNSPECIFIED (3) Supratherapeutic INR Current Visit: Yes Status: Resolved Code(s): R79.1 - ABNORMAL COAGULATION PROFILE (4) Acute kidney injury Current Visit: Yes Status: Acute Code(s): N17.9 - ACUTE KIDNEY FAILURE, UNSPECIFIED (5) Chronic diastolic CHF (congestive heart failure) Current Visit: Yes Status: Acute Code(s): I50.32 - CHRONIC DIASTOLIC ( CONGESTIVE) HEART FAILURE (6) Uremic encephalopathy Current Visit: Yes Status: Resolved Assessment & Plan: present on admission through yesterday resolved this am with improvement in the BUN Code(s): G93.41 - METABOLIC ENCEPHALOPATHY; N19 - UNSPECIFIED KIDNEY FAILURE (7) Acute blood loss anemia Current Visit: Yes Status: Acute Code(s): D62 - ACUTE POSTHEMORRHAGIC ANEMIA
[2017-06-26] MEDS: COSOPT OPHTHALMIC 10 ML OP SCH ×2 (09:55→21:47)
[2017-06-26] MEDS: Miralax Powder 17GM PACKET PO SCH (09:56)
[2017-06-26] MEDS: LUMIGAN 0.01% 2.5 ML OP SCH (23:50)
[2017-06-27] MEDS: PROTONIX 40 MG IV*** 80 MG in Sodium Chloride 0.9% 500 ML 500 ML IV SCH (00:41)
[2017-06-27 06:09] LABS: ANION GAP 8.4 MEQ/L (5-15); Carbon Dioxide 25.8 mEq/L (21-32); Potassium 4.4 mEq/L (3.5-5.1)
[2017-06-27 06:16] LABS: Mean Corpuscular Hemoglobin 29.7 pg (26-32); Mean Platelet Volume 10.7 fl (6-9.5); Platelet Count 152 K/mm3 (150-450); Red Blood Count 3.16 M/mm3 (4.1-5.6); Red Cell Distribution Width 15.1 % (11.5-14.0); White Blood Count 6.9 K/mm3 (4.0-10.5)
[2017-06-27 07:06] VITALS: BP 122/78; PULSE 82; O2SAT 96
--- NOTE | 2017-06-27 07:14 | PCM.DS ---
Discharge Summary Date of Admission: 06/24/17 00:20 Date of Discharge: 06/27/2017 Admitting Physician: RAUL ROSALES Consults: Consults on Case 06/24/17 08:08 Consult Surgery ROUTINE Primary Care Provider: STANLEY HARVEY Allergies Allergies No Known Drug Allergies Allergy (Verified 06/23/17 18:37) Hospital Summary - Hospital Course Hospital Course: Mr. Murillo is on warfarin for atrial fibrillation. He was not feeling well was having bloating and epigastric discomfort and constipation and was not eating well for several days then developed black tarry stools and weakness. he presented to ED and was found to have supratherapeutic INR and upper gi bleed from duodenal deep ulcer, persistent hypotension, acute blood loss anemia, metabolic encephalopathy due to severe uremia from the acute kidney injury due to the hypotension. He was treated with 3 units of prbc due to his persistent hypotension not responsive to fluid bolus as well as reversal of INR with at first 10 mg of subcutaneous vit K in ED followed by 5 mg IV in unit and then fresh frozen plasma. He had EGD by Dr. Chirinos on day of presentation after reversal of INR and was found to have a deep recently bleeding duodenal ulcer that was injected with epinephrine. HE was maintained on protonix gtt for 72 hours and did not have any rebleeding. His mental status returned to baseline with improvement in the uremia and his renal function continued to improve. His hgb stabilized after the transfusions and egd. We discussed his anticoagulation and stoke risk. Will hold anticoagulation for now and have f/u in 1 week pending the H. pylori testing and likely resume warfarin at follow up appointment if he continues to do well. - Vitals & Intake/Output Vital Signs: Vital Signs Temperature 98.5 F 06/27/17 04:20 Pulse Rate 80 06/27/17 04:20 Respiratory Rate 16 06/27/17 04:20 Blood Pressure 116/61 06/27/17 04:20 O2 Sat by Pulse Oximetry 97 06/27/17 04:20 Intake & Output: Intake & Output 06/24/17 06/25/17 06/26/17 06/27/17 11:59 11:59 11:59 11:59 Intake Total 1666 4077 3239 2031 Output Total 1140 2630 2270 2400 Balance 526 2327 969 -369 Weight 86.2 kg 85.6 kg 84.4 kg 84.187 kg - Lab Result Diagrams: 06/27/17 05:38 06/27/17 05:38 Lab Results-Last 24 Hrs: Lab Results-Last 24 Hours 06/27/17 06/27/17 Range/Units 05:38 05:38 WBC 6.9 (4.0-10.5) K/mm3 RBC 3.16 L (4.1-5.6) M/mm3 Hgb 9.4 L (12.5-18.0) gm/dl Hct 29.4 L (42-50) % MCV 93.0 (78-100) fl MCH 29.7 (26-32) pg MCHC 32.0 (32-36) g/dl RDW 15.1 H (11.5-14.0) % Plt Count 152 (150-450) K/mm3 MPV 10.7 H (6-9.5) fl Sodium 144 (136-145) mEq/L Potassium 4.4 (3.5-5.1) mEq/L Chloride 114 H (98-107) mEq/L Carbon Dioxide 25.8 (21-32) mEq/L Anion Gap 8.4 (5-15) MEQ/L BUN 25 H (9-20) mg/dL Creatinine 1.24 (0.55-1.30) mg/dl Estimated GFR 60 ML/MIN Glucose 95 (70-110) MG/DL Calcium 8.0 L (8.5-10.1) mg/dL - Procedures and Test Procedures and Tests throughout Hospitalization: Therapy Orders & Screens 06/24/17 00:40 Oxygen NASAL CANNULA 2 lpm Comment: Diagnosis: CHF Discharge Exam General Appearance: no apparent distress, alert Neurologic Exam: alert, oriented x 3, cooperative, normal mood/affect, nml cerebellar function, sensation nml, No motor deficits Skin Exam: normal color, warm, dry Eye Exam: PERRL, EOMI, eyes nml inspection Ears, Nose, Throat Exam: normal ENT inspection, pharynx normal, moist mucous membranes Neck Exam: normal inspection, non-tender, supple, full range of motion Respiratory Exam: normal breath sounds, lungs clear, No respiratory distress Cardiovascular Exam: regular rate/rhythm, normal heart sounds, other (paced rhythm) Gastrointestinal/Abdomen Exam: soft, No tenderness, No mass Extremity Exam: normal range of motion, other (left leg amputation chronic) Back Exam: normal inspection, normal range of motion, No CVA tenderness, No vertebral tenderness Male Genitalia Exam: deferred Rectal Exam: deferred Final Diagnosis/Problem List - Final Discharge Diagnosis/Problem (1) Duodenal ulcer with hemorrhage Current Visit: Yes Status: Acute (2) GI bleed Current Visit: Yes Status: Acute (3) Supratherapeutic INR Current Visit: Yes Status: Resolved (4) Acute kidney injury Current Visit: Yes Status: Acute (5) Chronic diastolic CHF (congestive heart failure) Current Visit: Yes Status: Acute (6) Uremic encephalopathy Current Visit: Yes Status: Resolved (7) Acute blood loss anemia Current Visit: Yes Status: Acute - Discharge Discharge Date: 06/27/17 Disposition: Home, Self-Care Condition: Stable Prescriptions: New PANTOPRAZOLE 40 mg Tablet [Protonix 40MG Tablet] 40 mg PO DAILY #30 tab Continue Calcium Carbonate/Vitamin D3 [Calcium 600-Vit D3 200 Tablet] 1 each PO WEEKLY Carvedilol 3.125 mg [Coreg 3.125 MG] 3.125 mg PO BID Timolol [Betimol] 1 drop OP BID Bimatoprost 0.01% [Lumigan 0.01% 2.5 ml] 2.5 ml OP HS Discontinued Warfarin Sodium [Coumadin] 8 mg PO DAILY Lisinopril 20 mg [Zestril 20 MG] 20 mg PO DAILY Follow up with: STANLEY HARVEY [Primary Care Provider] - BENNY LUZ [COURTESY STAFF] - 1 Week
[2017-06-27] MEDS: COSOPT OPHTHALMIC 10 ML OP SCH (10:18)
[2017-06-27] MEDS: Miralax Powder 17GM PACKET PO SCH (10:18)
== END 2017-06-27 12:00 | disposition home or self-care (01) | DRG 377 ==
LOC: ED 18:18 → ICU 06-24 00:20 → MED SURG 06-26 08:23
PROVIDERS: ADMIT Family Medicine; ATTEND Family Medicine
PROC: 0DB78ZX Excision of Stomach, Pylorus, Via Natural or Artificial Opening Endoscopic, Diagnostic (ICD-10-PCS; principal; 2017-06-24)
PROC: 3E0G8GC Introduction of Other Therapeutic Substance into Upper GI, Via Natural or Artificial Opening Endoscopic (ICD-10-PCS; 2017-06-24)
DX: K26.4 Chronic or unspecified duodenal ulcer with hemorrhage (principal); G93.41 Metabolic encephalopathy; N17.9 Acute kidney failure, unspecified; I50.32 Chronic diastolic (congestive) heart failure; D62 Acute posthemorrhagic anemia; K92.2 Gastrointestinal hemorrhage, unspecified; R79.1 Abnormal coagulation profile; K27.9 Peptic ulcer, site unspecified, unspecified as acute or chronic, without hemorrhage or perforation; I48.91 Unspecified atrial fibrillation; Z79.01 Long term (current) use of anticoagulants; I10 Essential (primary) hypertension; I50.9 Heart failure, unspecified; E11.9 Type 2 diabetes mellitus without complications; M19.90 Unspecified osteoarthritis, unspecified site; Z95.0 Presence of cardiac pacemaker; K29.00 Acute gastritis without bleeding; K20.9 Esophagitis, unspecified
CPT/HCPCS: 00740; 36000; 36415; 36430; 71010; 80048; 80053; 82272; 82962; 84484; 85014; 85018; 85025; 85027; 85610; 85730; 86850; 86900; 86901; 86922; 88305; 88312; 93005; 93041; 94760; 96360; 96361; 96365; 96372; 99100; 99140; 99285; J0171; J2405; J2704; J3430; P9016; P9017; A9270-GY

== ENCOUNTER 2022-10-31 21:59 | Inpatient (IN) | payer MEDICARE ==
[2022-10-31] MEDS ORDERED: Sodium Chloride 0.9% 1000 ML 1,000 ML IV STA (22:59)
[2022-10-31] MEDS ORDERED: Sodium Chloride 0.9% 1000 ML 1,000 ML ONE (23:01)
[2022-10-31 23:25] LABS: Absolute Neutrophil Ct (ANC) 5.69 x10^3/uL (1.4-6.9); Basophil (Absolute #) 0.05 x10^3/uL (0-0.4); Eosinophil % 0.2 % (0.00-5.0); Eosinophil (Absolute #) 0.02 x10^3/uL (0-0.5); Hematocrit 37.3 % (42-50); Hemoglobin 11.3 g/dL (12.5-18.0); Lymphocyte (Absolute #) 1.53 x10^3/uL (1.0-4.6); Mean Cell Volume 86.1 fL (78-100); Mean Corpuscular Hemoglobin 26.1 pg (26-32); Mean Corpuscular Hgb Concent. 30.3 g/dL (32-36); Monocyte (Absolute #) 1.19 x10^3/uL (0.0-1.3); Platelet Count 147 x10^3/uL (150-450); Red Blood Count 4.33 x10^6/uL (4.1-5.6); Red Cell Distribution Width 19.1 % (11.5-14.0); White Blood Count 8.5 x10^3/uL (4.0-10.5)
[2022-10-31 23:39] LABS: Appearance CLEAR (CLEAR); Bilirubin SMALL (NEGATIVE); Dipstick done @ ? MAIN LAB; Glucose NEGATIVE (NEGATIVE); Ketones NEGATIVE (NEGATIVE); Nitrite NEGATIVE (NEGATIVE); Protein,Urine Dip 30 (Negative); RBC TRACE-LYSED Ery/ul (0-5); Specific Gravity 1.025 (1.005-1.025); Urobilinogen 1 mg/dL (0-1)
[2022-10-31 23:40] LABS: Epithelial Cells RARE /HPF (FEW); Hyaline Casts 0-2 /LPF (0-2); Mucus SLIGHT /HPF (NEGATIVE); WBC 0-2 /HPF (0-5)
[2022-10-31 23:46] LABS: Bacteria NONE SEEN /HPF (NEGATIVE); Urine Cultured Indicated? YES
[2022-10-31 23:59] LABS: ALBUMIN 4.1 g/dL (3.5-5.0); BILIRUBIN,TOTAL 1.9 mg/dL (0.2-1.3); Calcium 8.7 mg/dL (8.4-10.2); Creatinine 1 1.7 mg/dL (0.66-1.25); EST GLOMERULAR FILTRATION RATE 40.8 ML/MIN; Potassium 4.7 mmol/L (3.5-5.1)
[2022-11-01 00:05] LABS: INFLUENZA A NEGATIVE (NEGATIVE); INFLUENZA B NEGATIVE (NEGATIVE); RESPIRATORY SYNCTIAL VIRUS NEGATIVE (Negative)
[2022-11-01 00:08] LABS: SARS-CoV-2 Xpert Express POSITIVE (NEGATIVE)
--- NOTE | 2022-11-01 01:02 | ERPHSYRPT ---
- History of Present Illness Time Seen by Provider: 10/31/22 22:40 Source: family Exam Limitations: clinical condition Patient Subjective Stated Complaint: son states "My mom called and said he needed to go to the hospital because he has been confused all day." Triage Nursing Assessment: pt presents to Ed via wheelchair, pt is a total assist by 2 to cot, pt alert to self, son states that he has been confused all day, son states I think he has COVID he was exposed at our family [place], he hasnt been eating or drinking much today either Physician History: Patient is an 87-year-old white male who was gathered with his family [place] and many of those members have developed COVID. The patient himself has not b een eating or drinking and has been confused over the last 24 hours. Timing/Duration: day(s) (3) Cough Quality/Degree: dry cough Modifying Factors: Improves With: nothing Associated Symptoms: other (Confusion and weakness) Allergies/Adverse Reactions: No Known Drug Allergies Allergy (Verified 06/23/17 18:37) Home Medications: Calcium Carbonate/Vitamin D3 [Calcium 600-Vit D3 200 Tablet] 1 each PO WEEKLY 04/30/12 [History] Carvedilol 3.125 mg [Coreg 3.125 MG] 3.125 mg PO BID 04/30/12 [History] Timolol [Betimol] 1 drop OP BID 05/17/14 [History] Bimatoprost 0.01% [Lumigan 0.01% 2.5 ml] 2.5 ml OP HS 06/23/17 [History] Hx Tetanus, Diphtheria Vaccination/Date Given: No Hx Influenza Vaccination/Date Given: Yes (2015) Hx Pneumococcal Vaccination/Date Given: Yes Immunizations Up to Date: No Travel Risk - International Travel Have you traveled outside of the country in past 3 weeks: No - Coronavirus Screening Are you exhibiting any of the following symptoms?: No Close contact with a COVID-19 positive Pt in past 14-21 Days: No - Vaccine Status Have you recieved a Covid-19 vaccination: Yes 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: Unknown - Vaccination Dates Dates if Unknown: unknown - Review of Systems Constitutional: Fever, No Chills Eyes: No Symptoms Ears, Nose, & Throat: No Symptoms Respiratory: No Cough, No Dyspnea Cardiac: No Chest Pain, No Edema, No Syncope Abdominal/Gastrointestinal: No Abdominal Pain, No Nausea, No Vomiting, No Diarrhea Genitourinary Symptoms: No Dysuria Musculoskeletal: No Back Pain, No Neck Pain Skin: No Rash Neurological: No Dizziness, No Focal Weakness, No Sensory Changes Psychological: No Symptoms Endocrine: No Symptoms All Other Systems: Reviewed and Negative - Past Medical History Pertinent Past Medical History: Yes Neurological History: No Pertinent History ENT History: Macular Degeneration Cardiac History: Arrhythmia, Hypertension, Other Respiratory History: CHF Endocrine Medical History: Diabetes Type II Musculoskeletal History: Arthritis, Other GI Medical History: No Pertinent History History: No Pertinent History Psycho-Social History: No Pertinent History Male Reproductive Disorders: No Pertinent History Other Medical History: A FIB, 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 - Past Surgical History Past Surgical History: Yes Neuro Surgical History: No Pertinent History Cardiac: Cardiac Stent Respiratory: No Pertinent History Gastrointestinal: Appendectomy Genitourinary: No Pertinent History Musculoskeletal: No Pertinent History Male Surgical History: No Pertinent History Other Surgical History: CARDIAC STENT SEVERAL YEARS, pacemaker in place, 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 - Social History Smoking Status: Former smoker Exposure to second hand smoke: No Drug Use: none Patient Lives Alone: No - Nursing Vital Signs Nursing Vital Signs: Initial Vital Signs Temperature 99.1 F 10/31/22 22:31 Pulse Rate 72 10/31/22 22:31 Respiratory Rate 18 10/31/22 22:31 Blood Pressure 111/68 10/31/22 22:31 O2 Sat by Pulse Oximetry 98 10/31/22 22:31 Pain Scale Pain Intensity 0 - Physical Exam General Appearance: no apparent distress Eye Exam: PERRL/EOMI, eyes nml inspection Ears, Nose, Throat Exam: normal ENT inspection Neck Exam: normal inspection, non-tender, supple Respiratory Exam: respiratory distress, airway intact, crackles/rales, rhonchi, wheezing Cardiovascular Exam: regular rate/rhythm Gastrointestinal/Abdomen Exam: soft, No tenderness Back Exam: normal inspection, normal range of motion Extremity Exam: normal inspection, normal range of motion Neurologic Exam: disoriented, confusion Skin Exam: normal color, warm, dry SpO2 Interpretation: normal SpO2: 98 O2 Delivery: Room Air - Course Nursing assessment & vital signs reviewed: Yes EKG Interpreted by Me: RATE (71 paced rhythm) - Radiology Exams Chest X-ray Interpretation: Interpreted by me (Right perihilar infiltrate) Ordered Tests: Active Orders 24 hr Category Date Time Status EKG-ER Only STAT Care 10/31/22 22:53 Active IV Insertion STAT Care 10/31/22 22:58 Active CHEST 1 VIEW (PORTABLE) Stat Exams 10/31/22 22:54 Taken BLOOD CULTURE Stat Lab 10/31/22 23:22 Received CBC W DIFF Stat Lab 10/31/22 23:22 Completed CMP Stat Lab 10/31/22 23:20 Completed CULTURE,URINE Stat Lab 10/31/22 22:58 Received Lactic Acid Stat Lab 10/31/22 23:32 Completed TROPONIN Q4H Lab 10/31/22 23:22 Completed UA W/RFX CULTURE Stat Lab 10/31/22 22:58 Completed Medication Summary Discontinued Medications Generic Name Dose Route Start Last Admin Trade Name Freq PRN Reason Stop Dose Admin Sodium Chloride 1,000 mls @ 999 mls/hr 10/31/22 22:59 10/31/22 23:02 Sodium Chloride 0.9% 1000 Ml IV 10/31/22 23:59 999 mls/hr .Q1H1M STA Administration Sodium Chloride Confirm 10/31/22 23:01 Sodium Chloride 0.9% 1000 Ml Administered 10/31/22 23:02 Dose 1,000 mls @ ud .ROUTE .STK-MED ONE Lab/Rad Data: Laboratory Result Diagrams 10/31/22 23:22 10/31/22 23:20 Laboratory Results 10/31/22 10/31/22 10/31/22 Range/Units 23:32 23:22 23:22 WBC (4.0-10.5) x10^3/uL RBC (4.1-5.6) x10^6/uL Hgb (12.5-18.0) g/dL Hct (42-50) % MCV (78-100) fL MCH (26-32) pg MCHC (32-36) g/dL RDW (11.5-14.0) % Plt Count (150-450) x10^3/uL MPV (7.5-11.0) fL Gran % (36.0-66.0) % Immature Gran % (Auto) (0.00-0.4) % Nucleat RBC Rel Count (0.00-0.1) % Eos # (Auto) (0-0.5) x10^3/uL Immature Gran # (Auto) (0.00-0.03) x10^3u/L Absolute Lymphs (auto) (1.0-4.6) x10^3/uL Absolute Monos (auto) (0.0-1.3) x10^3/uL Absolute Nucleated RBC (0.00-0.01) x10^3u/L Lymphocytes % (24.0-44.0) % Monocytes % (0.0-12.0) % Eosinophils % (0.00-5.0) % Basophils % (0.0-0.4) % Absolute Granulocytes (1.4-6.9) x10^3/uL Basophils # (0-0.4) x10^3/uL Sodium (137-145) mmol/L Potassium (3.5-5.1) mmol/L Chloride (98-107) mmol/L Carbon Dioxide (22-30) mmol/L Anion Gap (5-15) MEQ/L BUN (9-20) mg/dL Creatinine (0.66-1.25) mg/dL Estimated GFR ML/MIN Glucose (74-106) mg/dL Lactic Acid 1.6 (0.4-2.0) Calcium (8.4-10.2) mg/dL Total Bilirubin (0.2-1.3) mg/dL AST (17-59) U/L ALT (0-50) U/L Alkaline Phosphatase (38-126) U/L Troponin I 0.053 H* (0.000-0.034) ng/mL Serum Total Protein (6.3-8.2) g/dL Albumin (3.5-5.0) g/dL Urinalys Dipstick Clnc Urine Color (YELLOW) Urine Appearance (CLEAR) Urine pH (5-6) Ur Specific [place] (1.005-1.025) POC Urine Protein Conf (Negative) Urine Ketones (NEGATIVE) Urine Nitrite (NEGATIVE) Urine Bilirubin (NEGATIVE) Urine Urobilinogen (0-1) mg/dL Urine Leukocytes (NEGATIVE) Urine WBC (Auto) (0-5) /HPF Urine RBC (Auto) (0-2) /HPF U Hyaline Cast (Auto) (0-2) /LPF U Epithel Cells (Auto) (FEW) /HPF Urine Bacteria (Auto) (NEGATIVE) /HPF Urine RBC (0-5) Edwin/ul Urine Mucus (Auto) (NEGATIVE) /HPF Ur Culture Indicated? Urine Glucose (NEGATIVE) mg/dL Influenza Type A Ag NEGATIVE (NEGATIVE) Influenza Type B Ag NEGATIVE (NEGATIVE) RSV (PCR) NEGATIVE (Negative) SARS-CoV-2 (PCR) POSITIVE A (NEGATIVE) Group A Strep Antibody (NEGATIVE) 10/31/22 10/31/22 10/31/22 Range/Units 23:22 23:22 23:20 WBC 8.5 (4.0-10.5) x10^3/uL RBC 4.33 (4.1-5.6) x10^6/uL Hgb 11.3 L (12.5-18.0) g/dL Hct 37.3 L (42-50) % MCV 86.1 (78-100) fL MCH 26.1 (26-32) pg MCHC 30.3 L (32-36) g/dL RDW 19.1 H (11.5-14.0) % Plt Count 147 L (150-450) x10^3/uL MPV 10.0 (7.5-11.0) fL Gran % 67.0 H (36.0-66.0) % Immature Gran % (Auto) 0.2 (0.00-0.4) % Nucleat RBC Rel Count 0.0 (0.00-0.1) % Eos # (Auto) 0.02 (0-0.5) x10^3/uL Immature Gran # (Auto) 0.02 (0.00-0.03) x10^3u/L Absolute Lymphs (auto) 1.53 (1.0-4.6) x10^3/uL Absolute Monos (auto) 1.19 (0.0-1.3) x10^3/uL Absolute Nucleated RBC 0.00 (0.00-0.01) x10^3u/L Lymphocytes % 18.0 L (24.0-44.0) % Monocytes % 14.0 H (0.0-12.0) % Eosinophils % 0.2 (0.00-5.0) % Basophils % 0.6 (0.0-0.4) % Absolute Granulocytes 5.69 (1.4-6.9) x10^3/uL Basophils # 0.05 (0-0.4) x10^3/uL Sodium 134 L (137-145) mmol/L Potassium 4.7 (3.5-5.1) mmol/L Chloride 103 (98-107) mmol/L Carbon Dioxide 22 (22-30) mmol/L Anion Gap 13.0 (5-15) MEQ/L BUN 43 H (9-20) mg/dL Creatinine 1.70 H (0.66-1.25) mg/dL Estimated GFR 40.8 ML/MIN Glucose 103 (74-106) mg/dL Lactic Acid (0.4-2.0) Calcium 8.7 (8.4-10.2) mg/dL Total Bilirubin 1.90 H (0.2-1.3) mg/dL AST 251 H (17-59) U/L ALT 93 H (0-50) U/L Alkaline Phosphatase 140 H (38-126) U/L Troponin I (0.000-0.034) ng/mL Serum Total Protein 7.0 (6.3-8.2) g/dL Albumin 4.1 (3.5-5.0) g/dL Urinalys Dipstick Clnc Urine Color (YELLOW) Urine Appearance (CLEAR) Urine pH (5-6) Ur Specific [place] (1.005-1.025) POC Urine Protein Conf (Negative) Urine Ketones (NEGATIVE) Urine Nitrite (NEGATIVE) Urine Bilirubin (NEGATIVE) Urine Urobilinogen (0-1) mg/dL Urine Leukocytes (NEGATIVE) Urine WBC (Auto) (0-5) /HPF Urine RBC (Auto) (0-2) /HPF U Hyaline Cast (Auto) (0-2) /LPF U Epithel Cells (Auto) (FEW) /HPF Urine Bacteria (Auto) (NEGATIVE) /HPF Urine RBC (0-5) Edwin/ul Urine Mucus (Auto) (NEGATIVE) /HPF Ur Culture Indicated? Urine Glucose (NEGATIVE) mg/dL Influenza Type A Ag (NEGATIVE) Influenza Type B Ag (NEGATIVE) RSV (PCR) (Negative) SARS-CoV-2 (PCR) (NEGATIVE) Group A Strep Antibody NOT DETECTED (NEGATIVE) 10/31/22 Range/Units 22:58 WBC (4.0-10.5) x10^3/uL RBC (4.1-5.6) x10^6/uL Hgb (12.5-18.0) g/dL Hct (42-50) % MCV (78-100) fL MCH (26-32) pg MCHC (32-36) g/dL RDW (11.5-14.0) % Plt Count (150-450) x10^3/uL MPV (7.5-11.0) fL Gran % (36.0-66.0) % Immature Gran % (Auto) (0.00-0.4) % Nucleat RBC Rel Count (0.00-0.1) % Eos # (Auto) (0-0.5) x10^3/uL Immature Gran # (Auto) (0.00-0.03) x10^3u/L Absolute Lymphs (auto) (1.0-4.6) x10^3/uL Absolute Monos (auto) (0.0-1.3) x10^3/uL Absolute Nucleated RBC (0.00-0.01) x10^3u/L Lymphocytes % (24.0-44.0) % Monocytes % (0.0-12.0) % Eosinophils % (0.00-5.0) % Basophils % (0.0-0.4) % Absolute Granulocytes (1.4-6.9) x10^3/uL Basophils # (0-0.4) x10^3/uL Sodium (137-145) mmol/L Potassium (3.5-5.1) mmol/L Chloride (98-107) mmol/L Carbon Dioxide (22-30) mmol/L Anion Gap (5-15) MEQ/L BUN (9-20) mg/dL Creatinine (0.66-1.25) mg/dL Estimated GFR ML/MIN Glucose (74-106) mg/dL Lactic Acid (0.4-2.0) Calcium (8.4-10.2) mg/dL Total Bilirubin (0.2-1.3) mg/dL AST (17-59) U/L ALT (0-50) U/L Alkaline Phosphatase (38-126) U/L Troponin I (0.000-0.034) ng/mL Serum Total Protein (6.3-8.2) g/dL Albumin (3.5-5.0) g/dL Urinalys Dipstick Clnc MAIN LAB Urine Color DARK YELLOW (YELLOW) Urine Appearance CLEAR (CLEAR) Urine pH 5.0 (5-6) Ur Specific [place] 1.025 (1.005-1.025) POC Urine Protein Conf 30 A (Negative) Urine Ketones NEGATIVE (NEGATIVE) Urine Nitrite NEGATIVE (NEGATIVE) Urine Bilirubin SMALL A (NEGATIVE) Urine Urobilinogen 1 A (0-1) mg/dL Urine Leukocytes NEGATIVE (NEGATIVE) Urine WBC (Auto) 0-2 (0-5) /HPF Urine RBC (Auto) 6-10 A (0-2) /HPF U Hyaline Cast (Auto) 0-2 (0-2) /LPF U Epithel Cells (Auto) RARE (FEW) /HPF Urine Bacteria (Auto) NONE SEEN (NEGATIVE) /HPF Urine RBC TRACE-LYSED A (0-5) Edwin/ul Urine Mucus (Auto) SLIGHT A (NEGATIVE) /HPF Ur Culture Indicated? YES Urine Glucose NEGATIVE (NEGATIVE) mg/dL Influenza Type A Ag (NEGATIVE) Influenza Type B Ag (NEGATIVE) RSV (PCR) (Negative) SARS-CoV-2 (PCR) (NEGATIVE) Group A Strep Antibody (NEGATIVE) - Progress Progress: unchanged Air Movement: fair Blood Culture(s) Obtained: No Antibiotics given: Yes Discussed with : Venus (Dr. Rosales excepted the patient as an admission) - Departure Departure Disposition: Observation Clinical Impression: COVID-19 Condition: Stable Critical Care Time: No Referrals: RAUL ROSALES MD [Primary Care Provider] - Follow up/PCP as directed
[2022-11-01] MEDS ORDERED: Zofran 4 MG/2 ML VIAL IV PRN (01:04)
[2022-11-01] MEDS ORDERED: REMDESIVIR 200 MG in Sodium Chloride 0.9% 250 ML 250 ML IV ONE (01:09)
[2022-11-01 05:15] LABS: Absolute Neutrophil Ct (ANC) 4.82 x10^3/uL (1.4-6.9); Basophil (Absolute #) 0.04 x10^3/uL (0-0.4); Eosinophil % 0.1 % (0.00-5.0); Eosinophil (Absolute #) 0.01 x10^3/uL (0-0.5); Hematocrit 33.5 % (42-50); Hemoglobin 10.3 g/dL (12.5-18.0); Lymphocyte (Absolute #) 1.59 x10^3/uL (1.0-4.6); Lymphocytes % 20.6 % (24.0-44.0); Mean Cell Volume 85.7 fL (78-100); Mean Corpuscular Hemoglobin 26.3 pg (26-32); Mean Corpuscular Hgb Concent. 30.7 g/dL (32-36); Monocyte (Absolute #) 1.21 x10^3/uL (0.0-1.3); Monocytes % 15.7 % (0.0-12.0); Neutrophil % 62.7 % (36.0-66.0); Platelet Count 135 x10^3/uL (150-450); Red Blood Count 3.91 x10^6/uL (4.1-5.6); Red Cell Distribution Width 19.4 % (11.5-14.0); White Blood Count 7.7 x10^3/uL (4.0-10.5)
[2022-11-01 05:44] LABS: ALBUMIN 3.7 g/dL (3.5-5.0); BILIRUBIN,TOTAL 1.6 mg/dL (0.2-1.3); Calcium 8.1 mg/dL (8.4-10.2); Creatinine 1 1.63 mg/dL (0.66-1.25); EST GLOMERULAR FILTRATION RATE 42.8 ML/MIN; Potassium 4.1 mmol/L (3.5-5.1); Total Protein 6.6 g/dL (6.3-8.2)
--- NOTE | 2022-11-01 09:01 | XRAY ---
Indication: Fever, bodyaches, and confusion. Comparison: June 24, 2017 Portable chest demonstrates new bilateral perihilar interstitial alveolar opacities without consolidation/large effusion. Chronic right hemidiaphragm elevation. Heart not enlarged with again right pacemaker. Bony thorax intact again with osteopenia and degenerative changes.
[2022-11-01] MEDS ORDERED: Zithromax 500 MG/ 250 ML NaCl Premix 500 MG/250 ML IVPB IV SCH (10:00)
[2022-11-01] MEDS ORDERED: ROCEPHIN 1 Gm-D5w 50 ml Bag** 1 G/50 ML IVPB IV SCH (10:00)
--- NOTE | 2022-11-01 11:16 | PCM.HP ---
History of Present Illness - Chief Complaint Chief Complaint: covid History of Present Illness: Mr.WILLIAMS MATSON is a 87 year old male who presented to the ER with weakness, confusion and recent covid exposure. he has some cough, denies shortness of breath. he is confused but not in no distress. - Review of Systems Constitutional: Weakness Respiratory: Cough Cardiac: No Chest Pain, No Edema, No Syncope Abdominal/Gastrointestinal: No Abdominal Pain, No Nausea, No Vomiting, No Diarrhea Skin: No Rash All Other Systems: Reviewed and Negative Medications & Allergies Home Medications: Home Medication List Calcium Carbonate/Vitamin D3 [Calcium 600-Vit D3 200 Tablet] 1 each PO WEEKLY 04/30/12 [History Confirmed 06/24/17] Carvedilol 3.125 mg [Coreg 3.125 MG] 3.125 mg PO BID 04/30/12 [History Confirmed 06/23/17] Timolol [Betimol] 1 drop OP BID 05/17/14 [History Confirmed 06/23/17] Bimatoprost 0.01% [Lumigan 0.01% 2.5 ml] 2.5 ml OP HS 06/23/17 [History Confirmed 06/23/17] PANTOPRAZOLE 40 mg Tablet [Protonix 40MG Tablet] 40 mg PO DAILY #30 tab 06/27/17 [Rx] Allergies/Adverse Reactions: Allergies Allergy/AdvReac Type Severity Reaction Status Date / Time No Known Drug Allergies Allergy Verified 06/23/17 18:37 - Past Medical History Past Medical History: Yes Neurological History: No Pertinent History ENT History: Macular Degeneration Cardiac History: Arrhythmia, Hypertension, Other Respiratory History: CHF Endocrine Medical History: Diabetes Type II Musculoskelatal History: Arthritis, Other GI Medical History: No Pertinent History History: No Pertinent History Pyscho-Social History: No Pertinent History Male Reproductive Disorders: No Pertinent History Comment: A FIB, 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 - Past Surgical History Past Surgical History: Yes Neuro Surgical History: No Pertinent History Cardiac History: Cardiac Stent Respiratory Surgery: No Pertinent History GI Surgical History: Appendectomy Genitourinary Surgical Hx: No Pertinent History Musculskeletal Surgical Hx: No Pertinent History Male Surgical History: No Pertinent History Other Surgical History: CARDIAC STENT SEVERAL YEARS, pacemaker in place, 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 - Social History Smoking Status: Former smoker Exposure to second hand smoke: No Alcohol: Weekly Drug Use: none - Physical Exam Vital Signs: Vital Signs - 24 hr Temp Pulse Resp BP Pulse Ox 11/01/22 09:29 95 11/01/22 07:42 98.7 F 68 18 112/71 96 11/01/22 06:00 19 92 L 11/01/22 04:00 98.5 F 77 18 112/67 91 L 11/01/22 03:03 98.5 F 77 18 112/67 91 L 11/01/22 02:41 79 18 91 L 11/01/22 01:02 98 11/01/22 00:35 78 15 109/59 98 10/31/22 23:04 70 18 112/79 97 10/31/22 22:31 99.1 F 72 18 111/68 98 General Appearance: no apparent distress, alert Neurologic Exam: alert, cooperative, No oriented x 3 Respiratory Exam: normal breath sounds, lungs clear, No respiratory distress Cardiovascular Exam: regular rate/rhythm, normal heart sounds, normal peripheral pulses Gastrointestinal/Abdomen Exam: soft, normal bowel sounds, No tenderness, No mass Extremity Exam: normal inspection, normal range of motion, pelvis stable Skin Exam: normal color, warm, dry, No rash Results - Labs Lab/Micro Results: Lab Results-Last 24 Hours 10/31/22 10/31/22 10/31/22 Range/Units 22:58 23:20 23:22 WBC 8.5 (4.0-10.5) x10^3/uL RBC 4.33 (4.1-5.6) x10^6/uL Hgb 11.3 L (12.5-18.0) g/dL Hct 37.3 L (42-50) % MCV 86.1 (78-100) fL MCH 26.1 (26-32) pg MCHC 30.3 L (32-36) g/dL RDW 19.1 H (11.5-14.0) % Plt Count 147 L (150-450) x10^3/uL MPV 10.0 (7.5-11.0) fL Gran % 67.0 H (36.0-66.0) % Immature Gran % (Auto) 0.2 (0.00-0.4) % Nucleat RBC Rel Count 0.0 (0.00-0.1) % Eos # (Auto) 0.02 (0-0.5) x10^3/uL Immature Gran # (Auto) 0.02 (0.00-0.03) x10^3u/L Absolute Lymphs (auto) 1.53 (1.0-4.6) x10^3/uL Absolute Monos (auto) 1.19 (0.0-1.3) x10^3/uL Absolute Nucleated RBC 0.00 (0.00-0.01) x10^3u/L Lymphocytes % 18.0 L (24.0-44.0) % Monocytes % 14.0 H (0.0-12.0) % Eosinophils % 0.2 (0.00-5.0) % Basophils % 0.6 (0.0-0.4) % Absolute Granulocytes 5.69 (1.4-6.9) x10^3/uL Basophils # 0.05 (0-0.4) x10^3/uL Sodium 134 L (137-145) mmol/L Potassium 4.7 (3.5-5.1) mmol/L Chloride 103 (98-107) mmol/L Carbon Dioxide 22 (22-30) mmol/L Anion Gap 13.0 (5-15) MEQ/L BUN 43 H (9-20) mg/dL Creatinine 1.70 H (0.66-1.25) mg/dL Estimated GFR 40.8 ML/MIN Glucose 103 (74-106) mg/dL POC Glucometer (74 to 106) mg/dL Lactic Acid (0.4-2.0) Calcium 8.7 (8.4-10.2) mg/dL Total Bilirubin 1.90 H (0.2-1.3) mg/dL AST 251 H (17-59) U/L ALT 93 H (0-50) U/L Alkaline Phosphatase 140 H (38-126) U/L Troponin I (0.000-0.034) ng/mL Serum Total Protein 7.0 (6.3-8.2) g/dL Albumin 4.1 (3.5-5.0) g/dL Prealbumin (17.6-36.0) mg/dL Urinalys Dipstick Clnc MAIN LAB Urine Color DARK YELLOW (YELLOW) Urine Appearance CLEAR (CLEAR) Urine pH 5.0 (5-6) Ur Specific [place] 1.025 (1.005-1.025) POC Urine Protein Conf 30 A (Negative) Urine Ketones NEGATIVE (NEGATIVE) Urine Nitrite NEGATIVE (NEGATIVE) Urine Bilirubin SMALL A (NEGATIVE) Urine Urobilinogen 1 A (0-1) mg/dL Urine Leukocytes NEGATIVE (NEGATIVE) Urine WBC (Auto) 0-2 (0-5) /HPF Urine RBC (Auto) 6-10 A (0-2) /HPF U Hyaline Cast (Auto) 0-2 (0-2) /LPF U Epithel Cells (Auto) RARE (FEW) /HPF Urine Bacteria (Auto) NONE SEEN (NEGATIVE) /HPF Urine RBC TRACE-LYSED A (0-5) Edwin/ul Urine Mucus (Auto) SLIGHT A (NEGATIVE) /HPF Ur Culture Indicated? YES Urine Glucose NEGATIVE (NEGATIVE) mg/dL Influenza Type A Ag (NEGATIVE) Influenza Type B Ag (NEGATIVE) RSV (PCR) (Negative) SARS-CoV-2 (PCR) (NEGATIVE) Group A Strep Antibody (NEGATIVE) 10/31/22 10/31/22 10/31/22 Range/Units 23:22 23:22 23:22 WBC (4.0-10.5) x10^3/uL RBC (4.1-5.6) x10^6/uL Hgb (12.5-18.0) g/dL Hct (42-50) % MCV (78-100) fL MCH (26-32) pg MCHC (32-36) g/dL RDW (11.5-14.0) % Plt Count (150-450) x10^3/uL MPV (7.5-11.0) fL Gran % (36.0-66.0) % Immature Gran % (Auto) (0.00-0.4) % Nucleat RBC Rel Count (0.00-0.1) % Eos # (Auto) (0-0.5) x10^3/uL Immature Gran # (Auto) (0.00-0.03) x10^3u/L Absolute Lymphs (auto) (1.0-4.6) x10^3/uL Absolute Monos (auto) (0.0-1.3) x10^3/uL Absolute Nucleated RBC (0.00-0.01) x10^3u/L Lymphocytes % (24.0-44.0) % Monocytes % (0.0-12.0) % Eosinophils % (0.00-5.0) % Basophils % (0.0-0.4) % Absolute Granulocytes (1.4-6.9) x10^3/uL Basophils # (0-0.4) x10^3/uL Sodium (137-145) mmol/L Potassium (3.5-5.1) mmol/L Chloride (98-107) mmol/L Carbon Dioxide (22-30) mmol/L Anion Gap (5-15) MEQ/L BUN (9-20) mg/dL Creatinine (0.66-1.25) mg/dL Estimated GFR ML/MIN Glucose (74-106) mg/dL POC Glucometer (74 to 106) mg/dL Lactic Acid (0.4-2.0) Calcium (8.4-10.2) mg/dL Total Bilirubin (0.2-1.3) mg/dL AST (17-59) U/L ALT (0-50) U/L Alkaline Phosphatase (38-126) U/L Troponin I 0.053 H* (0.000-0.034) ng/mL Serum Total Protein (6.3-8.2) g/dL Albumin (3.5-5.0) g/dL Prealbumin (17.6-36.0) mg/dL Urinalys Dipstick Clnc Urine Color (YELLOW) Urine Appearance (CLEAR) Urine pH (5-6) Ur Specific [place] (1.005-1.025) POC Urine Protein Conf (Negative) Urine Ketones (NEGATIVE) Urine Nitrite (NEGATIVE) Urine Bilirubin (NEGATIVE) Urine Urobilinogen (0-1) mg/dL Urine Leukocytes (NEGATIVE) Urine WBC (Auto) (0-5) /HPF Urine RBC (Auto) (0-2) /HPF U Hyaline Cast (Auto) (0-2) /LPF U Epithel Cells (Auto) (FEW) /HPF Urine Bacteria (Auto) (NEGATIVE) /HPF Urine RBC (0-5) Edwin/ul Urine Mucus (Auto) (NEGATIVE) /HPF Ur Culture Indicated? Urine Glucose (NEGATIVE) mg/dL Influenza Type A Ag NEGATIVE (NEGATIVE) Influenza Type B Ag NEGATIVE (NEGATIVE) RSV (PCR) NEGATIVE (Negative) SARS-CoV-2 (PCR) POSITIVE A (NEGATIVE) Group A Strep Antibody NOT DETECTED (NEGATIVE) 10/31/22 11/01/22 11/01/22 Range/Units 23:32 04:18 04:18 WBC 7.7 (4.0-10.5) x10^3/uL RBC 3.91 L (4.1-5.6) x10^6/uL Hgb 10.3 L (12.5-18.0) g/dL Hct 33.5 L (42-50) % MCV 85.7 (78-100) fL MCH 26.3 (26-32) pg MCHC 30.7 L (32-36) g/dL RDW 19.4 H (11.5-14.0) % Plt Count 135 L (150-450) x10^3/uL MPV 10.0 (7.5-11.0) fL Gran % 62.7 (36.0-66.0) % Immature Gran % (Auto) 0.4 (0.00-0.4) % Nucleat RBC Rel Count 0.0 (0.00-0.1) % Eos # (Auto) 0.01 (0-0.5) x10^3/uL Immature Gran # (Auto) 0.03 (0.00-0.03) x10^3u/L Absolute Lymphs (auto) 1.59 (1.0-4.6) x10^3/uL Absolute Monos (auto) 1.21 (0.0-1.3) x10^3/uL Absolute Nucleated RBC 0.00 (0.00-0.01) x10^3u/L Lymphocytes % 20.6 L (24.0-44.0) % Monocytes % 15.7 H (0.0-12.0) % Eosinophils % 0.1 (0.00-5.0) % Basophils % 0.5 (0.0-0.4) % Absolute Granulocytes 4.82 (1.4-6.9) x10^3/uL Basophils # 0.04 (0-0.4) x10^3/uL Sodium 135 L (137-145) mmol/L Potassium 4.1 (3.5-5.1) mmol/L Chloride 106 (98-107) mmol/L Carbon Dioxide 20 L (22-30) mmol/L Anion Gap 13.0 (5-15) MEQ/L BUN 42 H (9-20) mg/dL Creatinine 1.63 H (0.66-1.25) mg/dL Estimated GFR 42.8 ML/MIN Glucose 98 (74-106) mg/dL POC Glucometer (74 to 106) mg/dL Lactic Acid 1.6 (0.4-2.0) Calcium 8.1 L (8.4-10.2) mg/dL Total Bilirubin 1.60 H (0.2-1.3) mg/dL AST 234 H (17-59) U/L ALT 88 H (0-50) U/L Alkaline Phosphatase 125 (38-126) U/L Troponin I (0.000-0.034) ng/mL Serum Total Protein 6.6 (6.3-8.2) g/dL Albumin 3.7 (3.5-5.0) g/dL Prealbumin (17.6-36.0) mg/dL Urinalys Dipstick Clnc Urine Color (YELLOW) Urine Appearance (CLEAR) Urine pH (5-6) Ur Specific [place] (1.005-1.025) POC Urine Protein Conf (Negative) Urine Ketones (NEGATIVE) Urine Nitrite (NEGATIVE) Urine Bilirubin (NEGATIVE) Urine Urobilinogen (0-1) mg/dL Urine Leukocytes (NEGATIVE) Urine WBC (Auto) (0-5) /HPF Urine RBC (Auto) (0-2) /HPF U Hyaline Cast (Auto) (0-2) /LPF U Epithel Cells (Auto) (FEW) /HPF Urine Bacteria (Auto) (NEGATIVE) /HPF Urine RBC (0-5) Edwin/ul Urine Mucus (Auto) (NEGATIVE) /HPF Ur Culture Indicated? Urine Glucose (NEGATIVE) mg/dL Influenza Type A Ag (NEGATIVE) Influenza Type B Ag (NEGATIVE) RSV (PCR) (Negative) SARS-CoV-2 (PCR) (NEGATIVE) Group A Strep Antibody (NEGATIVE) 11/01/22 11/01/22 11/01/22 Range/Units 04:43 04:56 07:20 WBC (4.0-10.5) x10^3/uL RBC (4.1-5.6) x10^6/uL Hgb (12.5-18.0) g/dL Hct (42-50) % MCV (78-100) fL MCH (26-32) pg MCHC (32-36) g/dL RDW (11.5-14.0) % Plt Count (150-450) x10^3/uL MPV (7.5-11.0) fL Gran % (36.0-66.0) % Immature Gran % (Auto) (0.00-0.4) % Nucleat RBC Rel Count (0.00-0.1) % Eos # (Auto) (0-0.5) x10^3/uL Immature Gran # (Auto) (0.00-0.03) x10^3u/L Absolute Lymphs (auto) (1.0-4.6) x10^3/uL Absolute Monos (auto) (0.0-1.3) x10^3/uL Absolute Nucleated RBC (0.00-0.01) x10^3u/L Lymphocytes % (24.0-44.0) % Monocytes % (0.0-12.0) % Eosinophils % (0.00-5.0) % Basophils % (0.0-0.4) % Absolute Granulocytes (1.4-6.9) x10^3/uL Basophils # (0-0.4) x10^3/uL Sodium (137-145) mmol/L Potassium (3.5-5.1) mmol/L Chloride (98-107) mmol/L Carbon Dioxide (22-30) mmol/L Anion Gap (5-15) MEQ/L BUN (9-20) mg/dL Creatinine (0.66-1.25) mg/dL Estimated GFR ML/MIN Glucose (74-106) mg/dL POC Glucometer 94 (74 to 106) mg/dL Lactic Acid 1.1 (0.4-2.0) Calcium (8.4-10.2) mg/dL Total Bilirubin (0.2-1.3) mg/dL AST (17-59) U/L ALT (0-50) U/L Alkaline Phosphatase (38-126) U/L Troponin I (0.000-0.034) ng/mL Serum Total Protein (6.3-8.2) g/dL Albumin (3.5-5.0) g/dL Prealbumin 11.60 L (17.6-36.0) mg/dL Urinalys Dipstick Clnc Urine Color (YELLOW) Urine Appearance (CLEAR) Urine pH (5-6) Ur Specific [place] (1.005-1.025) POC Urine Protein Conf (Negative) Urine Ketones (NEGATIVE) Urine Nitrite (NEGATIVE) Urine Bilirubin (NEGATIVE) Urine Urobilinogen (0-1) mg/dL Urine Leukocytes (NEGATIVE) Urine WBC (Auto) (0-5) /HPF Urine RBC (Auto) (0-2) /HPF U Hyaline Cast (Auto) (0-2) /LPF U Epithel Cells (Auto) (FEW) /HPF Urine Bacteria (Auto) (NEGATIVE) /HPF Urine RBC (0-5) Edwin/ul Urine Mucus (Auto) (NEGATIVE) /HPF Ur Culture Indicated? Urine Glucose (NEGATIVE) mg/dL Influenza Type A Ag (NEGATIVE) Influenza Type B Ag (NEGATIVE) RSV (PCR) (Negative) SARS-CoV-2 (PCR) (NEGATIVE) Group A Strep Antibody (NEGATIVE) - Radiology Impressions Radiology Exams & Impressions: Radiology Procedures Category Date Time Status CHEST 1 VIEW (PORTABLE) Stat Exams 10/31/22 22:54 Completed Assessment/Plan (1) COVID-19 Current Visit: Yes Status: Acute Assessment & Plan: continue IV remdesivir and dexamethasone, lovenox 40mg daily Code(s): U07.1 - COVID-19 (2) Pneumonia Current Visit: Yes Status: Acute Assessment & Plan: likely covid related but covering with rocephin/zithromax at this time Code(s): J18.9 - PNEUMONIA, UNSPECIFIED ORGANISM (3) Acute delirium Current Visit: Yes Status: Acute Code(s): R41.0 - DISORIENTATION, UNSPECIFIED
[2022-11-01] MEDS: Decadron 4 MG INJ IV SCH (12:09)
[2022-11-01] MEDS: ENOXAPARIN SODIUM SQ SCH (12:09)
[2022-11-01] MEDS: Sodium Chloride 0.9% 1000 ML 1,000 ML IV SCH (14:48)
[2022-11-01] MEDS: Coreg 3.125 MG PO SCH (21:38)
[2022-11-01] MEDS: LUMIGAN 0.01% 2.5 ML OP SCH (21:38)
[2022-11-01] MEDS: Zithromax 500 MG/ 250 ML NaCl Premix 500 MG/250 ML IVPB IV SCH (21:39)
[2022-11-01] MEDS: ROCEPHIN 1 Gm-D5w 50 ml Bag** 1 G/50 ML IVPB IV SCH (23:58)
[2022-11-02] MEDS: REMDESIVIR 100 MG in Sodium Chloride 100ML MINI-BAG PLUS 100 ML IV SCH ×2 (01:02→21:16)
[2022-11-02 05:09] LABS: Absolute Neutrophil Ct (ANC) 3.35 x10^3/uL (1.4-6.9); Basophil (Absolute #) 0.01 x10^3/uL (0-0.4); Eosinophil (Absolute #) 0 x10^3/uL (0-0.5); Hematocrit 33.2 % (42-50); Hemoglobin 9.9 g/dL (12.5-18.0); Lymphocytes % 17.4 % (24.0-44.0); Mean Cell Volume 86.7 fL (78-100); Mean Corpuscular Hemoglobin 25.8 pg (26-32); Mean Corpuscular Hgb Concent. 29.8 g/dL (32-36); Mean Platelet Volume 9.9 fL (7.5-11.0); Monocyte (Absolute #) 0.41 x10^3/uL (0.0-1.3); Monocytes % 8.9 % (0.0-12.0); Neutrophil % 73.1 % (36.0-66.0); Platelet Count 127 x10^3/uL (150-450); Red Blood Count 3.83 x10^6/uL (4.1-5.6); Red Cell Distribution Width 19.7 % (11.5-14.0); White Blood Count 4.6 x10^3/uL (4.0-10.5)
[2022-11-02 05:54] LABS: ANION GAP 10.7 MEQ/L (5-15); BILIRUBIN,TOTAL 1.2 mg/dL (0.2-1.3); Calcium 7.6 mg/dL (8.4-10.2); Creatinine 1 1.24 mg/dL (0.66-1.25); EST GLOMERULAR FILTRATION RATE 58.7 ML/MIN; Potassium 3.9 mmol/L (3.5-5.1); Total Protein 5.7 g/dL (6.3-8.2)
[2022-11-02] MEDS ORDERED: MEDICATION INTERVENTION MC SCH (07:45)
[2022-11-02] MEDS: Protonix 40MG Tablet PO SCH (09:47)
[2022-11-02] MEDS: ENOXAPARIN SODIUM SQ SCH (09:47)
[2022-11-02] MEDS: Coreg 3.125 MG PO SCH ×2 (09:47→20:19)
[2022-11-02] MEDS: Decadron 4 MG INJ IV SCH (09:47)
[2022-11-02] MEDS ORDERED: TIMOLOL OP SCH (10:00)
[2022-11-02 13:58] LABS: INR 2.75 (0.8-3.0); PROTIME 26.6 SECONDS (9.4-12.5)
[2022-11-02] MEDS: Glucophage 500 MG PO SCH (18:12)
[2022-11-02] MEDS: ANUSOL-HC 2.5% CREAM 30 GM TP SCH ×2 (18:53→23:49)
[2022-11-02] MEDS: LUMIGAN 0.01% 2.5 ML OP SCH (20:17)
[2022-11-02] MEDS: COSOPT OPHTHALMIC 10 ML OP SCH (20:18)
[2022-11-02] MEDS ORDERED: NON-FORMULARY ITEM (Latanoprost/Pf [Latanoprost 0.005% Eye Drop] 7.5 ML Drops) OP SCH (22:00)
[2022-11-02] MEDS ORDERED: Coreg 3.125 MG PO SCH (22:00)
[2022-11-02] MEDS ORDERED: Xalatan OP SCH (22:00)
[2022-11-02] MEDS: ROCEPHIN 1 Gm-D5w 50 ml Bag** 1 G/50 ML IVPB IV SCH (22:43)
[2022-11-02] MEDS: Zithromax 500 MG/ 250 ML NaCl Premix 500 MG/250 ML IVPB IV SCH (23:18)
[2022-11-03] MEDS: Glucophage 500 MG PO SCH ×2 (08:03→16:37)
[2022-11-03] MEDS: ANUSOL-HC 2.5% CREAM 30 GM TP SCH ×2 (09:13→22:55)
[2022-11-03] MEDS: ENOXAPARIN SODIUM SQ SCH (09:14)
[2022-11-03] MEDS: DECADRON 10MG INJ. IV SCH (09:14)
[2022-11-03] MEDS: Klor Con PO SCH (09:15)
[2022-11-03] MEDS: LASIX 20 MG PO SCH (09:15)
[2022-11-03] MEDS: Protonix 40MG Tablet PO SCH (09:15)
[2022-11-03] MEDS: Coreg 3.125 MG PO SCH ×2 (09:15→21:12)
[2022-11-03] MEDS: COSOPT OPHTHALMIC 10 ML OP SCH (09:16)
--- NOTE | 2022-11-03 09:39 | PCM.NOTE ---
Date and Time: 11/02/22 1400 Subjective Assessment: Patient states he is feeling better and asked for a protein drink.Has decreased appetiteand dis not eat the [place] for lunch. Denies any trouble breathing . States hemorrhoids aggrevated from loose stools.,no abd pain. Objective Exam General Appearance: no apparent distress Neurologic Exam: alert, cooperative, other (oriented to person and place) Skin Exam: warm, dry, pale Ears, Nose, Throat Exam: normal ENT inspection Respiratory Exam: normal breath sounds Cardiovascular Exam: regular rate/rhythm Gastrointestinal/Abdomen Exam: soft (increased BS), tenderness Extremity Exam: normal inspection OBJECTIVE DATA Vital Signs: Vital Signs - 24 hr Temp Pulse Resp BP Pulse Ox 11/03/22 09:00 18 11/03/22 08:24 98 11/03/22 07:53 97.9 F 73 16 118/61 97 11/03/22 04:00 97.9 F 82 20 90/54 97 11/03/22 00:00 18 11/02/22 23:50 97.4 F 75 18 103/60 94 L 11/02/22 20:00 97.7 F 78 20 120/68 98 11/02/22 19:00 96 11/02/22 16:00 97.5 F 64 18 142/75 96 11/02/22 14:00 17 11/02/22 12:00 97.5 F 72 17 115/67 95 Pain Assessment - Last Documented Pain Intensity 0 Intake and Output: Intake & Output 10/31/22 11/01/22 11/02/22 11/03/22 11:59 11:59 11:59 11:59 Intake Total 360 2024 1200 Output Total 1250 700 Balance 360 774 500 Weight 77.8 kg 77.8 kg 76.9 kg Lab Results: Lab Results-Last 24 Hours 11/02/22 11/02/22 11/02/22 Range/Units 04:00 11:25 16:55 PT 26.6 H (9.4-12.5) SECONDS INR 2.75 (0.8-3.0) POC Glucometer 179 H 244 H (74 to 106) mg/dL 11/02/22 11/03/22 Range/Units 21:26 07:35 PT (9.4-12.5) SECONDS INR (0.8-3.0) POC Glucometer 230 H 137 H (74 to 106) mg/dL Multi-Disciplinary Progress Notes: Multi-Disciplinary Progress Notes 11/02/22 11:03 Case Management Note by Sultana Burdick S/W PATIENT'S - SHE CONTINUES TO DENY ANY NEW NEEDS FOR PATIENT AT [place]. SHE REPORTS HER CHILDREN AT O HELP OF ANYTHING IS NEEDED. SHE DECLINES HHC AT THIS TIME Initialized on 11/02/22 11:03 - END OF NOTE Assessment/Plan (1) COVID-19 Current Visit: Yes Status: Acute Assessment & Plan: GI symptoms mild today,no resp distress. Continue Remdisivir Code(s): U07.1 - COVID-19 (2) Acute delirium Current Visit: Yes Status: Resolved Code(s): R41.0 - DISORIENTATION, UNSPECIFIED (3) Hemorrhoids Current Visit: Yes Status: Chronic Assessment & Plan: irritated from diarrhea- Rx anusol Code(s): K64.9 - UNSPECIFIED HEMORRHOIDS
[2022-11-03] MEDS ORDERED: NON-FORMULARY ITEM (Potassium Chloride [Potassium Chloride] 10 MEQ Tablet.Er) PO SCH (10:00)
[2022-11-03] MEDS ORDERED: FEOSOL 325 MG PO SCH (10:00)
[2022-11-03 10:20] LABS: Absolute Neutrophil Ct (ANC) 8.34 x10^3/uL (1.4-6.9); Basophil (Absolute #) 0.01 x10^3/uL (0-0.4); Eosinophil (Absolute #) 0 x10^3/uL (0-0.5); Hematocrit 34.5 % (42-50); Hemoglobin 10.5 g/dL (12.5-18.0); Lymphocyte (Absolute #) 0.74 x10^3/uL (1.0-4.6); Lymphocytes % 7.7 % (24.0-44.0); Mean Corpuscular Hemoglobin 26.2 pg (26-32); Mean Corpuscular Hgb Concent. 30.4 g/dL (32-36); Mean Platelet Volume 9.5 fL (7.5-11.0); Monocyte (Absolute #) 0.46 x10^3/uL (0.0-1.3); Monocytes % 4.8 % (0.0-12.0); Neutrophil % 86.9 % (36.0-66.0); Platelet Count 134 x10^3/uL (150-450); Red Blood Count 4.01 x10^6/uL (4.1-5.6); Red Cell Distribution Width 19.7 % (11.5-14.0); White Blood Count 9.6 x10^3/uL (4.0-10.5)
[2022-11-03 10:54] LABS: ANION GAP 12.5 MEQ/L (5-15); BLOOD UREA NITROGEN 43 mg/dL (9-20); CHLORIDE 108 mmol/L (98-107); Calcium 7.8 mg/dL (8.4-10.2); Carbon Dioxide 21 mmol/L (22-30); Creatinine 1 1.03 mg/dL (0.66-1.25); EST GLOMERULAR FILTRATION RATE > 60.0 ML/MIN; Glucose 164 mg/dL (74-106); Potassium 4.1 mmol/L (3.5-5.1); SODIUM 138 mmol/L (137-145)
--- NOTE | 2022-11-03 14:31 | PCM.NOTE ---
Date and Time: 11/03/221428 Subjective Assessment: He has paroxysmal cough. Is drinking boost. Appetite is "okay." His just came down with covid as well, at home. 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.) Ears, Nose, Throat Exam: moist mucous membranes Neck Exam: normal inspection Respiratory Exam: normal breath sounds, lungs clear, No crackles/rales, No rhonchi, No wheezing Cardiovascular Exam: regular rate/rhythm, normal heart sounds, No murmur Gastrointestinal/Abdomen Exam: soft, normal bowel sounds, No tenderness, No distention, No mass, No guarding, No rebound Extremity Exam: normal inspection, No pedal edema, No swelling Back Exam: normal inspection, No rash OBJECTIVE DATA Vital Signs: Vital Signs - 24 hr Temp Pulse Resp BP Pulse Ox 11/03/22 13:00 16 11/03/22 12:00 97.6 F 71 16 113/67 97 11/03/22 11:00 18 11/03/22 09:00 18 11/03/22 08:24 98 11/03/22 07:53 97.9 F 73 16 118/61 97 11/03/22 04:00 97.9 F 82 20 90/54 97 11/03/22 00:00 18 11/02/22 23:50 97.4 F 75 18 103/60 94 L 11/02/22 20:00 97.7 F 78 20 120/68 98 11/02/22 19:00 96 11/02/22 16:00 97.5 F 64 18 142/75 96 Pain Assessment - Last Documented Pain Intensity 0 Intake and Output: Intake & Output 11/01/22 11/02/22 11/03/22 11/04/22 11:59 11:59 11:59 11:59 Intake Total 360 2024 1200 580 Output Total 1250 700 400 Balance 360 774 500 180 Weight 77.8 kg 77.8 kg 76.9 kg Lab Results: Lab Results-Last 24 Hours 12/30/22 12/30/22 12/31/22 Range/Units 16:55 21:26 07:35 WBC (4.0-10.5) x10^3/uL RBC (4.1-5.6) x10^6/uL Hgb (12.5-18.0) g/dL Hct (42-50) % MCV (78-100) fL MCH (26-32) pg MCHC (32-36) g/dL RDW (11.5-14.0) % Plt Count (150-450) x10^3/uL MPV (7.5-11.0) fL Gran % (36.0-66.0) % Immature Gran % (Auto) (0.00-0.4) % Nucleat RBC Rel Count (0.00-0.1) % Eos # (Auto) (0-0.5) x10^3/uL Immature Gran # (Auto) (0.00-0.03) x10^3u/L Absolute Lymphs (auto) (1.0-4.6) x10^3/uL Absolute Monos (auto) (0.0-1.3) x10^3/uL Absolute Nucleated RBC (0.00-0.01) x10^3u/L Lymphocytes % (24.0-44.0) % Monocytes % (0.0-12.0) % Eosinophils % (0.00-5.0) % Basophils % (0.0-0.4) % Absolute Granulocytes (1.4-6.9) x10^3/uL Basophils # (0-0.4) x10^3/uL Sodium (137-145) mmol/L Potassium (3.5-5.1) mmol/L Chloride (98-107) mmol/L Carbon Dioxide (22-30) mmol/L Anion Gap (5-15) MEQ/L BUN (9-20) mg/dL Creatinine (0.66-1.25) mg/dL Estimated GFR ML/MIN Glucose (74-106) mg/dL POC Glucometer 244 H 230 H 137 H (74 to 106) mg/dL Calcium (8.4-10.2) mg/dL 11/03/22 11/03/22 11/03/22 Range/Units 10:20 10:20 11:34 WBC 9.6 (4.0-10.5) x10^3/uL RBC 4.01 L (4.1-5.6) x10^6/uL Hgb 10.5 L (12.5-18.0) g/dL Hct 34.5 L (42-50) % MCV 86.0 (78-100) fL MCH 26.2 (26-32) pg MCHC 30.4 L (32-36) g/dL RDW 19.7 H (11.5-14.0) % Plt Count 134 L (150-450) x10^3/uL MPV 9.5 (7.5-11.0) fL Gran % 86.9 H (36.0-66.0) % Immature Gran % (Auto) 0.5 H (0.00-0.4) % Nucleat RBC Rel Count 0.0 (0.00-0.1) % Eos # (Auto) 0 (0-0.5) x10^3/uL Immature Gran # (Auto) 0.05 H (0.00-0.03) x10^3u/L Absolute Lymphs (auto) 0.74 L (1.0-4.6) x10^3/uL Absolute Monos (auto) 0.46 (0.0-1.3) x10^3/uL Absolute Nucleated RBC 0.00 (0.00-0.01) x10^3u/L Lymphocytes % 7.7 L (24.0-44.0) % Monocytes % 4.8 (0.0-12.0) % Eosinophils % 0.0 (0.00-5.0) % Basophils % 0.1 (0.0-0.4) % Absolute Granulocytes 8.34 H (1.4-6.9) x10^3/uL Basophils # 0.01 (0-0.4) x10^3/uL Sodium 138 (137-145) mmol/L Potassium 4.1 (3.5-5.1) mmol/L Chloride 108 H (98-107) mmol/L Carbon Dioxide 21 L (22-30) mmol/L Anion Gap 12.5 (5-15) MEQ/L BUN 43 H (9-20) mg/dL Creatinine 1.03 (0.66-1.25) mg/dL Estimated GFR > 60.0 ML/MIN Glucose 164 H (74-106) mg/dL POC Glucometer 164 H (74 to 106) mg/dL Calcium 7.8 L (8.4-10.2) mg/dL Assessment/Plan (1) COVID-19 Current Visit: Yes Status: Acute Assessment & Plan: doing much better. Completed 3d of IV remdesivir. Will likely go home tomorrow. Code(s): U07.1 - COVID-19 (2) Acute delirium Current Visit: Yes Status: Resolved Code(s): R41.0 - DISORIENTATION, UNSPECIFIED (3) Acute kidney injury Current Visit: No Status: Resolved Code(s): N17.9 - ACUTE KIDNEY FAILURE, UNSPECIFIED (4) Anemia Current Visit: Yes Status: Acute Qualifiers: Anemia type: unspecified type Qualified Code(s): D64.9 - Anemia, unspecified Assessment & Plan: recheck in a.m. Code(s): D64.9 - ANEMIA, UNSPECIFIED
[2022-11-03] MEDS: ROCEPHIN 1 Gm-D5w 50 ml Bag** 1 G/50 ML IVPB IV SCH (21:12)
[2022-11-03] MEDS: Sodium Chloride 0.9% 1000 ML 1,000 ML IV SCH (21:22)
[2022-11-03] MEDS ORDERED: COSOPT OPHTHALMIC 10 ML OP SCH (22:00)
[2022-11-03] MEDS ORDERED: LUMIGAN 0.01% 2.5 ML OP SCH (22:00)
[2022-11-03] MEDS: REMDESIVIR 100 MG in Sodium Chloride 100ML MINI-BAG PLUS 100 ML IV SCH (22:00)
[2022-11-03] MEDS: Zithromax 500 MG/ 250 ML NaCl Premix 500 MG/250 ML IVPB IV SCH (22:55)
[2022-11-04 05:42] LABS: Absolute Neutrophil Ct (ANC) 7.56 x10^3/uL (1.4-6.9); Basophil (Absolute #) 0.01 x10^3/uL (0-0.4); Eosinophil (Absolute #) 0 x10^3/uL (0-0.5); Hematocrit 33.3 % (42-50); Lymphocyte (Absolute #) 0.68 x10^3/uL (1.0-4.6); Lymphocytes % 7.8 % (24.0-44.0); Mean Cell Volume 85.6 fL (78-100); Mean Corpuscular Hemoglobin 25.7 pg (26-32); Monocyte (Absolute #) 0.41 x10^3/uL (0.0-1.3); Monocytes % 4.7 % (0.0-12.0); Neutrophil % 86.9 % (36.0-66.0); Platelet Count 123 x10^3/uL (150-450); Red Blood Count 3.89 x10^6/uL (4.1-5.6); Red Cell Distribution Width 19.6 % (11.5-14.0); White Blood Count 8.7 x10^3/uL (4.0-10.5)
[2022-11-04 06:03] LABS: ANION GAP 7.7 MEQ/L (5-15); BLOOD UREA NITROGEN 44 mg/dL (9-20); CHLORIDE 109 mmol/L (98-107); Carbon Dioxide 24 mmol/L (22-30); Creatinine 1 1.08 mg/dL (0.66-1.25); EST GLOMERULAR FILTRATION RATE > 60.0 ML/MIN; Glucose 177 mg/dL (74-106); Potassium 4.2 mmol/L (3.5-5.1); SODIUM 136 mmol/L (137-145)
[2022-11-04] MEDS: Glucophage 500 MG PO SCH (08:18)
[2022-11-04] MEDS: COSOPT OPHTHALMIC 10 ML OP SCH ×2 (10:05→14:38)
[2022-11-04] MEDS: Coreg 3.125 MG PO SCH (10:05)
[2022-11-04] MEDS: ANUSOL-HC 2.5% CREAM 30 GM TP SCH ×2 (10:05→11:00)
[2022-11-04] MEDS: DECADRON 10MG INJ. IV SCH (10:06)
[2022-11-04] MEDS: ENOXAPARIN SODIUM SQ SCH (10:07)
[2022-11-04] MEDS: Protonix 40MG Tablet PO SCH (10:08)
[2022-11-04] MEDS: Klor Con PO SCH (10:08)
[2022-11-04] MEDS: LUMIGAN 0.01% 2.5 ML OP SCH ×2 (10:08→14:39)
[2022-11-04] MEDS: LASIX 20 MG PO SCH (10:08)
[2022-11-04 12:04] LABS: INR 1.9 (0.8-3.0)
[2022-11-04 12:19] VITALS: BP 111/74; PULSE 71; O2SAT 96
--- NOTE | 2022-11-04 12:26 | PCM.DS ---
Discharge Summary Date of Admission: 11/01/22 11:13 Admitting Physician: RUAL ROSALES Primary Care Provider: RAUL ROSALES Allergies Allergies No Known Drug Allergies Allergy (Verified 06/23/17 18:37) Hospital Summary - Hospital Course Hospital Course: Pt is an 87 yo male pt of Dr. Rosales with hx BKA d/t DVT who came to ER confused with JAZMYN and found to have COVID. He recevied 3d IV remdesivir and IV dexamethasone. He has recovered well, has some chronic anemia, but will be discharged to home. He completed 4d of IV antibiotics and will not be discharged on an antibiotic. His confusion and renal injury resolved. Apparently on admission his coumadin was omitted from the med list; it was later added but not addressed, so he has not received his coumadin during this stay. His INR today is 1.90 so he will be given 8mg coumadin (usual dose 7mg daily) and back to 7mg tomorrow. Give therapeutic lovenox SQ at 3 pm prior to leaving hospital and will plan to bridge with lovenox until inr is therapeutic (daily INRs). - Vitals & Intake/Output Vital Signs: Vital Signs Temperature 97.6 F 11/04/22 11:00 Pulse Rate 71 11/04/22 11:00 Respiratory Rate 19 11/04/22 11:00 Blood Pressure 111/74 11/04/22 11:00 O2 Sat by Pulse Oximetry 96 11/04/22 11:00 Intake & Output: Intake & Output 11/02/22 11/03/22 11/04/22 11/05/22 11:59 11:59 11:59 11:59 Intake Total 2024 1200 1360 Output Total 2001 794 2247 Balance 774 500 -1040 Weight 77.8 kg 76.9 kg 76.9 kg - Lab Result Diagrams: 11/04/22 04:33 11/04/22 04:33 Lab Results-Last 24 Hrs: Lab Results-Last 24 Hours 11/03/22 11/03/22 11/03/22 Range/Units 16:17 21:29 21:33 WBC (4.0-10.5) x10^3/uL RBC (4.1-5.6) x10^6/uL Hgb (12.5-18.0) g/dL Hct (42-50) % MCV (78-100) fL MCH (26-32) pg MCHC (32-36) g/dL RDW (11.5-14.0) % Plt Count (150-450) x10^3/uL MPV (7.5-11.0) fL Gran % (36.0-66.0) % Immature Gran % (Auto) (0.00-0.4) % Nucleat RBC Rel Count (0.00-0.1) % Eos # (Auto) (0-0.5) x10^3/uL Immature Gran # (Auto) (0.00-0.03) x10^3u/L Absolute Lymphs (auto) (1.0-4.6) x10^3/uL Absolute Monos (auto) (0.0-1.3) x10^3/uL Absolute Nucleated RBC (0.00-0.01) x10^3u/L Lymphocytes % (24.0-44.0) % Monocytes % (0.0-12.0) % Eosinophils % (0.00-5.0) % Basophils % (0.0-0.4) % Absolute Granulocytes (1.4-6.9) x10^3/uL Basophils # (0-0.4) x10^3/uL PT (9.4-12.5) SECONDS INR (0.8-3.0) Sodium (137-145) mmol/L Potassium (3.5-5.1) mmol/L Chloride (98-107) mmol/L Carbon Dioxide (22-30) mmol/L Anion Gap (5-15) MEQ/L BUN (9-20) mg/dL Creatinine (0.66-1.25) mg/dL Estimated GFR ML/MIN Glucose (74-106) mg/dL POC Glucometer 258 H 250 H 218 H (74 to 106) mg/dL Calcium (8.4-10.2) mg/dL 11/04/22 11/04/22 11/04/22 Range/Units 04:33 04:33 07:40 WBC 8.7 (4.0-10.5) x10^3/uL RBC 3.89 L (4.1-5.6) x10^6/uL Hgb 10.0 L (12.5-18.0) g/dL Hct 33.3 L (42-50) % MCV 85.6 (78-100) fL MCH 25.7 L (26-32) pg MCHC 30.0 L (32-36) g/dL RDW 19.6 H (11.5-14.0) % Plt Count 123 L (150-450) x10^3/uL MPV 10.0 (7.5-11.0) fL Gran % 86.9 H (36.0-66.0) % Immature Gran % (Auto) 0.5 H (0.00-0.4) % Nucleat RBC Rel Count 0.0 (0.00-0.1) % Eos # (Auto) 0 (0-0.5) x10^3/uL Immature Gran # (Auto) 0.04 H (0.00-0.03) x10^3u/L Absolute Lymphs (auto) 0.68 L (1.0-4.6) x10^3/uL Absolute Monos (auto) 0.41 (0.0-1.3) x10^3/uL Absolute Nucleated RBC 0.00 (0.00-0.01) x10^3u/L Lymphocytes % 7.8 L (24.0-44.0) % Monocytes % 4.7 (0.0-12.0) % Eosinophils % 0.0 (0.00-5.0) % Basophils % 0.1 (0.0-0.4) % Absolute Granulocytes 7.56 H (1.4-6.9) x10^3/uL Basophils # 0.01 (0-0.4) x10^3/uL PT (9.4-12.5) SECONDS INR (0.8-3.0) Sodium 136 L (137-145) mmol/L Potassium 4.2 (3.5-5.1) mmol/L Chloride 109 H (98-107) mmol/L Carbon Dioxide 24 (22-30) mmol/L Anion Gap 7.7 (5-15) MEQ/L BUN 44 H (9-20) mg/dL Creatinine 1.08 (0.66-1.25) mg/dL Estimated GFR > 60.0 ML/MIN Glucose 177 H (74-106) mg/dL POC Glucometer 143 H (74 to 106) mg/dL Calcium 8.0 L (8.4-10.2) mg/dL 11/04/22 11/04/22 Range/Units 11:30 11:40 WBC (4.0-10.5) x10^3/uL RBC (4.1-5.6) x10^6/uL Hgb (12.5-18.0) g/dL Hct (42-50) % MCV (78-100) fL MCH (26-32) pg MCHC (32-36) g/dL RDW (11.5-14.0) % Plt Count (150-450) x10^3/uL MPV (7.5-11.0) fL Gran % (36.0-66.0) % Immature Gran % (Auto) (0.00-0.4) % Nucleat RBC Rel Count (0.00-0.1) % Eos # (Auto) (0-0.5) x10^3/uL Immature Gran # (Auto) (0.00-0.03) x10^3u/L Absolute Lymphs (auto) (1.0-4.6) x10^3/uL Absolute Monos (auto) (0.0-1.3) x10^3/uL Absolute Nucleated RBC (0.00-0.01) x10^3u/L Lymphocytes % (24.0-44.0) % Monocytes % (0.0-12.0) % Eosinophils % (0.00-5.0) % Basophils % (0.0-0.4) % Absolute Granulocytes (1.4-6.9) x10^3/uL Basophils # (0-0.4) x10^3/uL PT 19.0 H (9.4-12.5) SECONDS INR 1.90 (0.8-3.0) Sodium (137-145) mmol/L Potassium (3.5-5.1) mmol/L Chloride (98-107) mmol/L Carbon Dioxide (22-30) mmol/L Anion Gap (5-15) MEQ/L BUN (9-20) mg/dL Creatinine (0.66-1.25) mg/dL Estimated GFR ML/MIN Glucose (74-106) mg/dL POC Glucometer 140 H (74 to 106) mg/dL Calcium (8.4-10.2) mg/dL Micro Results-Entire Visit: Microbiology 10/31/22 22:58 Urine Culture - Final Urine, Void <10K NORMAL SKIN ONELIA PROBABLE SKIN CONTAMINANT 10/31/22 23:22 Blood Culture - Preliminary Blood NO GROWTH TO DATE 10/31/22 22:40 Blood Culture - Preliminary Blood NO GROWTH TO DATE Accuchecks Date 11/04/22 Date 11/04/22 Date 11/03/22 Date 11/03/22 Time 12:18 Time 08:00 Time 16:57 - Procedures and Test Procedures and Tests throughout Hospitalization: Therapy Orders & Screens 11/01/22 01:04 Respiratory Therapy Consult ROUTINE Comment: Reason For Exam: Discharge Exam General Appearance: no apparent distress, alert Neurologic Exam: oriented x 3, cooperative Eye Exam: other (R eye strabismus as usual) Ears, Nose, Throat Exam: other (PAIMIUT) Respiratory Exam: normal breath sounds, lungs clear, No crackles/rales, No rhonchi, No wheezing Cardiovascular Exam: regular rate/rhythm, normal heart sounds, No murmur Gastrointestinal/Abdomen Exam: soft, normal bowel sounds, No tenderness Extremity Exam: other (LLE s/p remote BKA. RLE no c/c/e) Skin Exam: normal color, warm, dry, No rash Final Diagnosis/Problem List - Final Discharge Diagnosis/Problem (1) coumadin therapy Current Visit: Yes Status: Acute (2) COVID-19 Current Visit: Yes Status: Acute Assessment & Plan: Doing great, back home today. not on O2. Code(s): U07.1 - COVID-19 (3) Acute delirium Current Visit: Yes Status: Resolved Code(s): R41.0 - DISORIENTATION, UNSPECIFIED (4) Acute kidney injury Current Visit: No Status: Resolved Code(s): N17.9 - ACUTE KIDNEY FAILURE, UNSPECIFIED (5) Anemia Current Visit: Yes Status: Chronic Code(s): D64.9 - ANEMIA, UNSPECIFIED - Discharge Disposition: Home, Self-Care Condition: Good Prescriptions: New PANTOPRAZOLE 40 mg Tablet [Protonix 40MG Tablet] 40 mg PO DAILY #30 tab let Continue Bimatoprost 0.01% [Lumigan 0.01% 2.5 ml] 2.5 ml OP TID Dorzolamide HCl/Timolol Maleat [Dorzolamide-Timolol Eye Drops] 1 drop OP TID Metformin HCl 500 mg [Glucophage 500 MG] 500 mg PO BID Potassium Chloride 10 mg PO DAILY Furosemide 20 mg [Lasix 20 mg] 20 mg PO DAILY Carvedilol 3.125 mg [Coreg 3.125 MG] 3.125 mg PO BID Warfarin Sodium 1 mg [Jantoven] 1 mg PO UD Warfarin Sodium 6 mg PO DAILY Follow up with: RAUL ROSALES MD [Primary Care Provider] -
[2022-11-04] MEDS ORDERED: JANTOVEN PO ONE (14:00)
[2022-11-04] MEDS ORDERED: Coumadin 3 MG PO ONE (14:00)
[2022-11-04] MEDS ORDERED: ENOXAPARIN SODIUM SQ SCH (15:00)
== END 2022-11-04 16:48 | disposition home or self-care (01) | DRG 177 ==
LOC: ED 21:59 → MED SURG 11-01 01:31 → OBSVTOIN 11-01 11:13
PROVIDERS: ADMIT Family Medicine; ATTEND Family Medicine
DX: U07.1 COVID-19 (principal); J18.9 Pneumonia, unspecified organism; N17.9 Acute kidney failure, unspecified; R41.0 Disorientation, unspecified; D64.9 Anemia, unspecified; I11.0 Hypertensive heart disease with heart failure; I50.9 Heart failure, unspecified; I48.91 Unspecified atrial fibrillation; E11.9 Type 2 diabetes mellitus without complications; K64.9 Unspecified hemorrhoids; Z79.01 Long term (current) use of anticoagulants; Z79.899 Other long term (current) drug therapy; Z20.828 Contact with and (suspected) exposure to other viral communicable diseases
CPT/HCPCS: 0241U; 36000; 36415; 71045; 80048; 80053; 81015; 82947; 83605; 84134; 84484; 85025; 85610; 87040; 87086; 87651; 93005; 93268; 94762; 96360; 99285; J0248; J0456; J0696; J1100; J1650; A9270-GY

== ENCOUNTER 2023-01-26 14:03 | Observation (INO) | payer MEDICARE ==
[2023-01-26] MEDS ORDERED: Sodium Chloride 0.9% 1000 ML 1,000 ML IV SCH (14:30)
[2023-01-26 14:45] LABS: Absolute Neutrophil Ct (ANC) 3.67 x10^3/uL (1.4-6.9); BASOPHIL % 1.1 % (0.0-0.4); Basophil (Absolute #) 0.07 x10^3/uL (0-0.4); Eosinophil % 4.9 % (0.00-5.0); Eosinophil (Absolute #) 0.31 x10^3/uL (0-0.5); Hematocrit 33.4 % (42-50); Hemoglobin 9.5 g/dL (12.5-18.0); IMMATURE GRAN # 0.01 x10^3u/L (0.00-0.03); IMMATURE GRAN % 0.2 % (0.00-0.4); Lymphocyte (Absolute #) 1.56 x10^3/uL (1.0-4.6); Lymphocytes % 24.6 % (24.0-44.0); Mean Cell Volume 83.9 fL (78-100); Mean Corpuscular Hemoglobin 23.9 pg (26-32); Mean Corpuscular Hgb Concent. 28.4 g/dL (32-36); Mean Platelet Volume 10.7 fL (7.5-11.0); Monocyte (Absolute #) 0.73 x10^3/uL (0.0-1.3); Monocytes % 11.5 % (0.0-12.0); Neutrophil % 57.7 % (36.0-66.0); Platelet Count 165 x10^3/uL (150-450); Red Blood Count 3.98 x10^6/uL (4.1-5.6); Red Cell Distribution Width 18.4 % (11.5-14.0); White Blood Count 6.4 x10^3/uL (4.0-10.5)
[2023-01-26] MEDS ORDERED: Ativan 2 MG/1 ML VIAL IV ONE (14:53)
[2023-01-26] MEDS ORDERED: Ativan 2 MG/1 ML VIAL ONE ×2 (14:54→17:19)
[2023-01-26 15:02] LABS: PROTIME 58.9 SECONDS (9.4-12.5); PTT 51.4 SECONDS (25.1-36.5)
[2023-01-26 15:04] LABS: INR 6.18 (0.8-3.0)
--- NOTE | 2023-01-26 15:07 | ERPHSYRPT ---
- History of Present Illness Time Seen by Provider: 01/26/23 14:25 Source: patient, family Exam Limitations: clinical condition Patient Subjective Stated Complaint: Patient c/o being tired and SOB easily. states patient has increased weakness, nasal congestion, and has been hallucinating at home for the past few weeks. No fevers. No pain. Triage Nursing Assessment: Patient brought back to ER in a W/C. Assisted from W/C to bed by 2 staff. Patient falling asleep during assessment at times. He is pale. SOB noted if laying flat. Occassional, non-productive cough is present. LUngs clear with diminished bases. Slight edema, dry scales, and redness noted to RLE. Small abrasions/scratches noted to right shoulder and abdomen; patient denies itching. Physician History: Patient is a an 87-year-old white male who presents with a chief complaint of hallucinating he has been seeing little girls riding the bike in his living room he was convinced he was locked in the bathroom last night and sat there several hours waiting for the door to be opened. He has been deteriorating over the past few weeks and that he has been extremely weak and getting more weaker and extremely short of breath. He has profoundly orthopneic and cannot lay flat without losing his breath. He saw his PCP a week ago and some lab work was done results are unknown. Timing/Duration: week(s) (Several weeks) Severity: moderate Character of Deficits: altered sensation, vision problems Deficits: cannot walk Baseline/Normal Cognition: alert but confused Current Cognition: alert but confused Associated Symptoms: confusion, weakness Allergies/Adverse Reactions: No Known Drug Allergies Allergy (Verified 01/26/23 14:11) Home Medications: Carvedilol 3.125 mg [Coreg 3.125 MG] 3.125 mg PO BID 11/02/22 [History] Dorzolamide HCl/Timolol Maleat [Dorzolamide-Timolol Eye Drops] 1 drop OP TID 11/02/22 [History] Furosemide 20 mg [Lasix 20 mg] 20 mg PO DAILY 11/02/22 [History] Metformin HCl 500 mg [Glucophage 500 MG] 500 mg PO BID 11/02/22 [History] Potassium Chloride 10 mg PO DAILY 12/30/22 [History] Latanoprost [Xalatan] 1 drop OP HS 01/26/23 [History] Hx Tetanus, Diphtheria Vaccination/Date Given: Yes Hx Influenza Vaccination/Date Given: Yes Hx Pneumococcal Vaccination/Date Given: Yes Immunizations Up to Date: Yes Travel Risk - International Travel Have you traveled outside of the country in past 3 weeks: No - Coronavirus Screening Are you exhibiting any of the following symptoms?: Yes Symptoms: Shortness of Breath, Headaches/Body Aches/Fatigue Close contact with a COVID-19 positive Pt in past 14-21 Days: No - Vaccine Status Have you recieved a Covid-19 vaccination: Yes [place] Farmer: Unknown - Vaccination Dates Dates if Unknown: unknown - Review of Systems All Other Systems: Unable due to condition - Past Medical History Pertinent Past Medical History: Yes Neurological History: No Pertinent History ENT History: Macular Degeneration Cardiac History: Arrhythmia, Hypertension, Other Respiratory History: CHF Endocrine Medical History: Diabetes Type II Musculoskeletal History: Arthritis, Other GI Medical History: GERD History: No Pertinent History Psycho-Social History: No Pertinent History Male Reproductive Disorders: No Pertinent History Other Medical History: A FIB - Past Surgical History Past Surgical History: Yes Neuro Surgical History: No Pertinent History Cardiac: Cardiac Catheterization, Cardiac Stent Respiratory: No Pertinent History Gastrointestinal: Appendectomy Genitourinary: No Pertinent History Musculoskeletal: No Pertinent History Male Surgical History: No Pertinent History Other Surgical History: CARDIAC STENT SEVERAL YEARS, pacemaker in place, Left BK amputation - Social History Smoking Status: Former smoker Exposure to second hand smoke: No Drug Use: none Patient Lives Alone: No - Nursing Vital Signs Nursing Vital Signs: Initial Vital Signs Temperature 97.2 F 01/26/23 14:14 Pulse Rate 72 01/26/23 14:14 Respiratory Rate 24 01/26/23 14:14 Blood Pressure 106/59 01/26/23 14:14 O2 Sat by Pulse Oximetry 95 01/26/23 14:14 Pain Scale Pain Intensity 0 - [place] Coma Scale Best Eye Response ([place]): (4) open spontaneously Best Verbal Response ([place]): (4) confused conversation Best Motor Response ([place]): (5) localizes to pain [place] Total: 13 - Physical Exam General Appearance: mild distress Eye Exam: bilateral eye: PERRL, EOMI, other (Scleral icterus) Ears, Nose, Throat Exam: normal ENT inspection, moist mucous membranes Neck Exam: normal inspection, non-tender, supple Respiratory: normal breath sounds, lungs clear, airway intact, No respiratory distress Cardiovascular: regular rate/rhythm, other (Patient has an implanted pacer defibrillator) Gastrointestinal: soft, normal bowel sounds Back Exam: normal inspection, normal range of motion Extremity Exam: other (Amputation left lower extremity) Mental Status: alert, oriented x 3, 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 Exam: normal hearing, normal speech Coordination/Gait: abnormal gait Motor/Sensory: no motor deficit, no sensory deficit Skin Exam: jaundice SpO2 Interpretation: O2 applied SpO2: 95 O2 Delivery: Nasal Cannula - Course Nursing assessment & vital signs reviewed: Yes EKG Interpreted by Me: RATE (75), Non-specific ST Changes (Paced rhythm), Other - Radiology Exams Chest X-ray Interpretation: Interpreted by me (Chest x-ray shows a widened mediastinum and CHF questionable left lower lobe infiltrate we are awaiting a reading by the telemetry radiologist) - CT Exams Head CT Interpretation: Tele-radiologist Report, Other (Telemetry radiologist report reviewed by me) Ordered Tests: Active Orders 24 hr Category Date Time Status EKG-ER Only STAT Care 01/26/23 14:22 Active IV Insertion STAT Care 01/26/23 14:22 Active Oxygen-ED Only Nasal Cannula 2 lpm Care 01/26/23 15:05 Active CHEST 1 VIEW (PORTABLE) Stat Exams 01/26/23 14:24 Taken HEAD WITHOUT CONTRAST [CT] Stat Exams 01/26/23 14:24 Taken ACETAMINOPHEN Stat Lab 01/26/23 14:25 Completed BNPII [NT PRO BNPII] Stat Lab 01/26/23 14:25 Completed CBC W DIFF Stat Lab 01/26/23 14:25 Completed CMP Stat Lab 01/26/23 14:25 Completed ETHYL ALCOHOL Stat Lab 01/26/23 14:25 Completed Lactic Acid Stat Lab 01/26/23 14:22 Completed MAGNESIUM Stat Lab 01/26/23 14:25 Completed POCT GLUCOSE Stat Lab 01/26/23 14:41 Completed PROTIME WITH INR Stat Lab 01/26/23 14:25 Completed PTT Stat Lab 01/26/23 14:25 Completed SALICYLATE Stat Lab 01/26/23 14:25 Completed TROPONIN Q4H Lab 01/26/23 14:25 Completed TROPONIN Q4H Lab 01/26/23 18:30 Ordered TROPONIN Q4H Lab 01/26/23 22:30 Ordered TSH, 3RD Generation Stat Lab 01/26/23 14:25 Completed UA W/RFX UR CULTURE Stat Lab 01/26/23 14:46 Completed Urine Triage Profile Stat Lab 01/26/23 14:46 Completed Medication Summary Generic Name Dose Route Start Last Admin Trade Name Freq PRN Reason Stop Dose Admin Sodium Chloride 1,000 mls @ 100 mls/hr 01/26/23 14:30 01/26/23 14:36 Sodium Chloride 0.9% 1000 Ml IV 02/25/23 14:29 100 mls/hr .Q10H STANISLAW Administration Discontinued Medications Generic Name Dose Route Start Last Admin Trade Name Freq PRN Reason Stop Dose Admin Furosemide 40 mg 01/26/23 15:30 01/26/23 15:33 Furosemide 40 Mg/4 Ml Vial IV 01/26/23 15:31 40 mg STAT ONE Administration Furosemide Confirm 01/26/23 15:32 Furosemide 40 Mg/4 Ml Vial Administered 01/26/23 15:33 Dose 40 mg .ROUTE .STK-MED ONE Lorazepam 1 mg 01/26/23 14:53 01/26/23 14:55 Lorazepam 2 Mg/1 Ml 2 Mg Vial IV 01/26/23 14:54 1 mg STAT ONE Administration Lorazepam Confirm 01/26/23 14:54 Lorazepam 2 Mg/1 Ml 2 Mg Vial Administered 01/26/23 14:55 Dose 2 mg .ROUTE .STK-MED ONE Lab/Rad Data: Laboratory Result Diagrams 01/26/23 14:25 01/26/23 14:25 Laboratory Results 01/26/23 01/26/23 01/26/23 Range/Units 14:46 14:46 14:41 WBC (4.0-10.5) x10^3/uL RBC (4.1-5.6) x10^6/uL Hgb (12.5-18.0) g/dL Hct (42-50) % MCV (78-100) fL MCH (26-32) pg MCHC (32-36) g/dL RDW (11.5-14.0) % Plt Count (150-450) x10^3/uL MPV (7.5-11.0) fL Gran % (36.0-66.0) % Immature Gran % (Auto) (0.00-0.4) % Nucleat RBC Rel Count (0.00-0.1) % Eos # (Auto) (0-0.5) x10^3/uL Immature Gran # (Auto) (0.00-0.03) x10^3u/L Absolute Lymphs (auto) (1.0-4.6) x10^3/uL Absolute Monos (auto) (0.0-1.3) x10^3/uL Absolute Nucleated RBC (0.00-0.01) x10^3u/L Lymphocytes % (24.0-44.0) % Monocytes % (0.0-12.0) % Eosinophils % (0.00-5.0) % Basophils % (0.0-0.4) % Absolute Granulocytes (1.4-6.9) x10^3/uL Basophils # (0-0.4) x10^3/uL PT (9.4-12.5) SECONDS INR (0.8-3.0) APTT (25.1-36.5) SECONDS Sodium (137-145) mmol/L Potassium (3.5-5.1) mmol/L Chloride (98-107) mmol/L Carbon Dioxide (22-30) mmol/L Anion Gap (5-15) MEQ/L BUN (9-20) mg/dL Creatinine (0.66-1.25) mg/dL Estimated GFR ML/MIN Glucose (74-106) mg/dL POC Glucometer 133 H (74 to 106) mg/dL Lactic Acid (0.4-2.0) Calcium (8.4-10.2) mg/dL Magnesium (1.6-2.3) mg/dL Total Bilirubin (0.2-1.3) mg/dL AST (17-59) U/L ALT (0-50) U/L Alkaline Phosphatase (38-126) U/L Ammonia (9-30) umol/L Troponin I (0.000-0.034) ng/mL NT-Pro-B Natriuret Pep (<300) pg/mL Serum Total Protein (6.3-8.2) g/dL Albumin (3.5-5.0) g/dL TSH 3rd Generation (0.47-4.68) mIU/L Urine Color Dark Yellow (Yellow) Urine Appearance Clear (Clear) Urine pH 5.0 (4.6-8.0) Ur Specific [place] 1.020 (1.005-1.030) Urine Protein 30 (Negative) Urine Glucose (UA) Negative (Negative) mg/dL Urine Ketones Negative (Negative) Urine Blood Negative (Negative) Urine Nitrite Negative (Negative) Urine Bilirubin Small A (Negative) Urine Urobilinogen 1.0 A (0.2) mg/dL Ur Leukocyte Esterase Negative (Negative) U Hyaline Cast (Auto) 3-5 A (0-2) /LPF Urine Microscopic RBC 0-2 (0-5) /HPF Urine Microscopic WBC 0-2 (0-5) /HPF Ur Epithelial Cells None Seen (None Seen) /HPF Urine Bacteria None Seen (None Seen) /HPF Urine Culture Reflexed NO (NO) Salicylates (2-20) mg/dL Urine Opiates Level NEGATIVE (NEGATIVE) Ur Methadone NEGATIVE (NEGATIVE) Acetaminophen (10-30) ug/ml Urine Barbiturates NEGATIVE (NEGATIVE) Ur Phencyclidine (PCP) NEGATIVE (NEGATIVE) Urine Amphetamine NEGATIVE (NEGATIVE) U Benzodiazepine Level NEGATIVE (NEGATIVE) Urine Cocaine NEGATIVE (NEGATIVE) Urine Marijuana (THC) NEGATIVE (NEGATIVE) Ethyl Alcohol (0-10) mg/dL 01/26/23 01/26/23 01/26/23 Range/Units 14:25 14:25 14:25 WBC 6.4 (4.0-10.5) x10^3/uL RBC 3.98 L (4.1-5.6) x10^6/uL Hgb 9.5 L (12.5-18.0) g/dL Hct 33.4 L (42-50) % MCV 83.9 (78-100) fL MCH 23.9 L (26-32) pg MCHC 28.4 L (32-36) g/dL RDW 18.4 H (11.5-14.0) % Plt Count 165 (150-450) x10^3/uL MPV 10.7 (7.5-11.0) fL Gran % 57.7 (36.0-66.0) % Immature Gran % (Auto) 0.2 (0.00-0.4) % Nucleat RBC Rel Count 0.0 (0.00-0.1) % Eos # (Auto) 0.31 (0-0.5) x10^3/uL Immature Gran # (Auto) 0.01 (0.00-0.03) x10^3u/L Absolute Lymphs (auto) 1.56 (1.0-4.6) x10^3/uL Absolute Monos (auto) 0.73 (0.0-1.3) x10^3/uL Absolute Nucleated RBC 0.00 (0.00-0.01) x10^3u/L Lymphocytes % 24.6 (24.0-44.0) % Monocytes % 11.5 (0.0-12.0) % Eosinophils % 4.9 (0.00-5.0) % Basophils % 1.1 (0.0-0.4) % Absolute Granulocytes 3.67 (1.4-6.9) x10^3/uL Basophils # 0.07 (0-0.4) x10^3/uL PT 58.9 H (9.4-12.5) SECONDS INR 6.18 H* (0.8-3.0) APTT 51.4 H (25.1-36.5) SECONDS Sodium (137-145) mmol/L Potassium (3.5-5.1) mmol/L Chloride (98-107) mmol/L Carbon Dioxide (22-30) mmol/L Anion Gap (5-15) MEQ/L BUN (9-20) mg/dL Creatinine (0.66-1.25) mg/dL Estimated GFR ML/MIN Glucose (74-106) mg/dL POC Glucometer (74 to 106) mg/dL Lactic Acid (0.4-2.0) Calcium (8.4-10.2) mg/dL Magnesium (1.6-2.3) mg/dL Total Bilirubin (0.2-1.3) mg/dL AST (17-59) U/L ALT (0-50) U/L Alkaline Phosphatase (38-126) U/L Ammonia (9-30) umol/L Troponin I (0.000-0.034) ng/mL NT-Pro-B Natriuret Pep 5960 (<300) pg/mL Serum Total Protein (6.3-8.2) g/dL Albumin (3.5-5.0) g/dL TSH 3rd Generation (0.47-4.68) mIU/L Urine Color (Yellow) Urine Appearance (Clear) Urine pH (4.6-8.0) Ur Specific [place] (1.005-1.030) Urine Protein (Negative) Urine Glucose (UA) (Negative) mg/dL Urine Ketones (Negative) Urine Blood (Negative) Urine Nitrite (Negative) Urine Bilirubin (Negative) Urine Urobilinogen (0.2) mg/dL Ur Leukocyte Esterase (Negative) U Hyaline Cast (Auto) (0-2) /LPF Urine Microscopic RBC (0-5) /HPF Urine Microscopic WBC (0-5) /HPF Ur Epithelial Cells (None Seen) /HPF Urine Bacteria (None Seen) /HPF Urine Culture Reflexed (NO) Salicylates (2-20) mg/dL Urine Opiates Level (NEGATIVE) Ur Methadone (NEGATIVE) Acetaminophen (10-30) ug/ml Urine Barbiturates (NEGATIVE) Ur Phencyclidine (PCP) (NEGATIVE) Urine Amphetamine (NEGATIVE) U Benzodiazepine Level (NEGATIVE) Urine Cocaine (NEGATIVE) Urine Marijuana (THC) (NEGATIVE) Ethyl Alcohol (0-10) mg/dL 01/26/23 01/26/23 01/26/23 Range/Units 14:25 14:25 14:25 WBC (4.0-10.5) x10^3/uL RBC (4.1-5.6) x10^6/uL Hgb (12.5-18.0) g/dL Hct (42-50) % MCV (78-100) fL MCH (26-32) pg MCHC (32-36) g/dL RDW (11.5-14.0) % Plt Count (150-450) x10^3/uL MPV (7.5-11.0) fL Gran % (36.0-66.0) % Immature Gran % (Auto) (0.00-0.4) % Nucleat RBC Rel Count (0.00-0.1) % Eos # (Auto) (0-0.5) x10^3/uL Immature Gran # (Auto) (0.00-0.03) x10^3u/L Absolute Lymphs (auto) (1.0-4.6) x10^3/uL Absolute Monos (auto) (0.0-1.3) x10^3/uL Absolute Nucleated RBC (0.00-0.01) x10^3u/L Lymphocytes % (24.0-44.0) % Monocytes % (0.0-12.0) % Eosinophils % (0.00-5.0) % Basophils % (0.0-0.4) % Absolute Granulocytes (1.4-6.9) x10^3/uL Basophils # (0-0.4) x10^3/uL PT (9.4-12.5) SECONDS INR (0.8-3.0) APTT (25.1-36.5) SECONDS Sodium 139 (137-145) mmol/L Potassium 4.4 (3.5-5.1) mmol/L Chloride 105 (98-107) mmol/L Carbon Dioxide 22 (22-30) mmol/L Anion Gap 16.1 H (5-15) MEQ/L BUN 31 H (9-20) mg/dL Creatinine 1.47 H (0.66-1.25) mg/dL Estimated GFR 48.3 ML/MIN Glucose 149 H (74-106) mg/dL POC Glucometer (74 to 106) mg/dL Lactic Acid (0.4-2.0) Calcium 8.2 L (8.4-10.2) mg/dL Magnesium 1.8 (1.6-2.3) mg/dL Total Bilirubin 1.70 H (0.2-1.3) mg/dL AST 31 (17-59) U/L ALT 14 (0-50) U/L Alkaline Phosphatase 118 (38-126) U/L Ammonia < 9 L (9-30) umol/L Troponin I 0.028 (0.000-0.034) ng/mL NT-Pro-B Natriuret Pep (<300) pg/mL Serum Total Protein 6.7 (6.3-8.2) g/dL Albumin 3.8 (3.5-5.0) g/dL TSH 3rd Generation 4.040 (0.47-4.68) mIU/L Urine Color (Yellow) Urine Appearance (Clear) Urine pH (4.6-8.0) Ur Specific [place] (1.005-1.030) Urine Protein (Negative) Urine Glucose (UA) (Negative) mg/dL Urine Ketones (Negative) Urine Blood (Negative) Urine Nitrite (Negative) Urine Bilirubin (Negative) Urine Urobilinogen (0.2) mg/dL Ur Leukocyte Esterase (Negative) U Hyaline Cast (Auto) (0-2) /LPF Urine Microscopic RBC (0-5) /HPF Urine Microscopic WBC (0-5) /HPF Ur Epithelial Cells (None Seen) /HPF Urine Bacteria (None Seen) /HPF Urine Culture Reflexed (NO) Salicylates < 1.0 L (2-20) mg/dL Urine Opiates Level (NEGATIVE) Ur Methadone (NEGATIVE) Acetaminophen < 10 L (10-30) ug/ml Urine Barbiturates (NEGATIVE) Ur Phencyclidine (PCP) (NEGATIVE) Urine Amphetamine (NEGATIVE) U Benzodiazepine Level (NEGATIVE) Urine Cocaine (NEGATIVE) Urine Marijuana (THC) (NEGATIVE) Ethyl Alcohol < 10 (0-10) mg/dL 01/26/23 Range/Units 14:22 WBC (4.0-10.5) x10^3/uL RBC (4.1-5.6) x10^6/uL Hgb (12.5-18.0) g/dL Hct (42-50) % MCV (78-100) fL MCH (26-32) pg MCHC (32-36) g/dL RDW (11.5-14.0) % Plt Count (150-450) x10^3/uL MPV (7.5-11.0) fL Gran % (36.0-66.0) % Immature Gran % (Auto) (0.00-0.4) % Nucleat RBC Rel Count (0.00-0.1) % Eos # (Auto) (0-0.5) x10^3/uL Immature Gran # (Auto) (0.00-0.03) x10^3u/L Absolute Lymphs (auto) (1.0-4.6) x10^3/uL Absolute Monos (auto) (0.0-1.3) x10^3/uL Absolute Nucleated RBC (0.00-0.01) x10^3u/L Lymphocytes % (24.0-44.0) % Monocytes % (0.0-12.0) % Eosinophils % (0.00-5.0) % Basophils % (0.0-0.4) % Absolute Granulocytes (1.4-6.9) x10^3/uL Basophils # (0-0.4) x10^3/uL PT (9.4-12.5) SECONDS INR (0.8-3.0) APTT (25.1-36.5) SECONDS Sodium (137-145) mmol/L Potassium (3.5-5.1) mmol/L Chloride (98-107) mmol/L Carbon Dioxide (22-30) mmol/L Anion Gap (5-15) MEQ/L BUN (9-20) mg/dL Creatinine (0.66-1.25) mg/dL Estimated GFR ML/MIN Glucose (74-106) mg/dL POC Glucometer (74 to 106) mg/dL Lactic Acid 1.9 (0.4-2.0) Calcium (8.4-10.2) mg/dL Magnesium (1.6-2.3) mg/dL Total Bilirubin (0.2-1.3) mg/dL AST (17-59) U/L ALT (0-50) U/L Alkaline Phosphatase (38-126) U/L Ammonia (9-30) umol/L Troponin I (0.000-0.034) ng/mL NT-Pro-B Natriuret Pep (<300) pg/mL Serum Total Protein (6.3-8.2) g/dL Albumin (3.5-5.0) g/dL TSH 3rd Generation (0.47-4.68) mIU/L Urine Color (Yellow) Urine Appearance (Clear) Urine pH (4.6-8.0) Ur Specific [place] (1.005-1.030) Urine Protein (Negative) Urine Glucose (UA) (Negative) mg/dL Urine Ketones (Negative) Urine Blood (Negative) Urine Nitrite (Negative) Urine Bilirubin (Negative) Urine Urobilinogen (0.2) mg/dL Ur Leukocyte Esterase (Negative) U Hyaline Cast (Auto) (0-2) /LPF Urine Microscopic RBC (0-5) /HPF Urine Microscopic WBC (0-5) /HPF Ur Epithelial Cells (None Seen) /HPF Urine Bacteria (None Seen) /HPF Urine Culture Reflexed (NO) Salicylates (2-20) mg/dL Urine Opiates Level (NEGATIVE) Ur Methadone (NEGATIVE) Acetaminophen (10-30) ug/ml Urine Barbiturates (NEGATIVE) Ur Phencyclidine (PCP) (NEGATIVE) Urine Amphetamine (NEGATIVE) U Benzodiazepine Level (NEGATIVE) Urine Cocaine (NEGATIVE) Urine Marijuana (THC) (NEGATIVE) Ethyl Alcohol (0-10) mg/dL - Progress Progress: improved Progress Note: 01/26/23 15:46 Discussed the case with Dr. Lam he is agreeable to admitting him for treatment of his CHF and his over anticoagulation. Discussed with : Charles Medical Desision Making - Independent Historian Additional History obtained from: Spouse - Discussion of managment Care discussed with:: on-call "doc" Reviewed:: Test results Agreed on:: Treatment plan Will see patient: in hospital - Diagnostic Testing Diagnostic test were ordered, analyzed, and reviewed by me: Yes Radiological Interpretation: Interpreted by me, Reviewed by me - Risk of complications The pt has a high risk of morbidity or mortality based on: Drug therapy requiring intensive monitoring for toxicity, Decision regarding hospitilization or escalation of hosp level of care - Departure Departure Disposition: Observation Clinical Impression: Chronic diastolic CHF (congestive heart failure), Anemia, Coumadin toxicity Condition: Fair Critical Care Time: No Referrals: RAUL ROSALES MD [Primary Care Provider] - Follow up/PCP as directed Instructions: Heart Failure
[2023-01-26 15:29] LABS: ACETAMINOPHEN < 10 ug/ml (10-30); ALBUMIN 3.8 g/dL (3.5-5.0); ALKALINE PHOSPHATASE 118 U/L (38-126); ANION GAP 16.1 MEQ/L (5-15); BLOOD UREA NITROGEN 31 mg/dL (9-20); CHLORIDE 105 mmol/L (98-107); Calcium 8.2 mg/dL (8.4-10.2); Carbon Dioxide 22 mmol/L (22-30); Creatinine 1 1.47 mg/dL (0.66-1.25); EST GLOMERULAR FILTRATION RATE 48.3 ML/MIN; ETHYL ALCOHOL < 10 mg/dL (0-10); Glucose 149 mg/dL (74-106); MAGNESIUM 1.8 mg/dL (1.6-2.3); Potassium 4.4 mmol/L (3.5-5.1); SALICYLATE < 1.0 mg/dL (2-20); SGOT/AST 31 U/L (17-59); SGPT/ALT 14 U/L (0-50); SODIUM 139 mmol/L (137-145); Total Protein 6.7 g/dL (6.3-8.2)
[2023-01-26] MEDS ORDERED: Lasix 40 MG/4 ML IV ONE ×2 (15:30→16:50)
[2023-01-26 15:32] LABS: Amphetamine,Urine NEGATIVE (NEGATIVE); Barbiturate,Urine NEGATIVE (NEGATIVE); Benzodiazepine,Urine NEGATIVE (NEGATIVE); Cocaine,Urine NEGATIVE (NEGATIVE); Methadone,Urine NEGATIVE (NEGATIVE); Opiate,Urine NEGATIVE (NEGATIVE); PCP,Urine NEGATIVE (NEGATIVE); THC,Urine NEGATIVE (NEGATIVE)
[2023-01-26] MEDS ORDERED: Lasix 40 MG/4 ML ONE ×2 (15:32→16:51)
[2023-01-26 15:38] LABS: Appearance Clear (Clear); Bacteria None Seen /HPF (None Seen); Bilirubin Small (Negative); Blood Negative (Negative); Epithelial Cells None Seen /HPF (None Seen); Glucose, Urine Negative (Negative); Ketones Negative (Negative); Leukocyte Esterase Negative (Negative); Nitrite Negative (Negative); Protein,Urine Dip 30 (Negative); RBC 0-2 /HPF (0-5); WBC 0-2 /HPF (0-5)
[2023-01-26 15:43] LABS: ADD URINE CULTURE? NO (NO)
[2023-01-26 15:45] LABS: INFLUENZA A NEGATIVE (NEGATIVE); INFLUENZA B NEGATIVE (NEGATIVE); RESPIRATORY SYNCTIAL VIRUS NEGATIVE (NEGATIVE); SARS-CoV-2 Xpert Express NEGATIVE (NEGATIVE)
[2023-01-26 15:49] LABS: Slide Review 1 YES
[2023-01-26] MEDS ORDERED: HUMALOG SQ PRN (15:51)
[2023-01-26] MEDS ORDERED: Ativan 2 MG/1 ML VIAL IM ONE (17:17)
[2023-01-26] MEDS ORDERED: Ativan 2 MG/1 ML VIAL IV PRN (18:59)
--- NOTE | 2023-01-26 20:18 | XRAY ---
Indication: Confusion, memory loss, weakness, and short of breath. Multiple contiguous axial images obtained through the head without contrast. Comparison: None Study is slightly degraded by motion artifact. Age-appropriate global atrophy and minimal periventricular degenerative micro-ischemia bilaterally. No gross acute intracranial hemorrhage, abnormal extra-axial fluid collection, or mass effect. Fourth ventricle is midline without hydrocephalus. Bony calvarium grossly intact. Near-complete opacification left maxillary sinus. Remaining visualized paranasal sinuses and mastoid air cells grossly clear. Impression: 1. Motion artifact. 2. Grossly nonacute senile brain. 3. Incidental left maxillary sinus disease. Comment: Preliminary interpretation made by [facility]. No critical discrepancy.
--- NOTE | 2023-01-26 20:20 | XRAY ---
Indication: Short of breath. Comparison: October 23, 2022 Portable chest underinflated accentuating cardiopulmonary structures. New left base infiltrate/atelectasis with small effusion. New right midlung curvy linear subsegmental atelectasis/scarring. Heart borderline enlarged again with right pacemaker. Bony thorax intact.
[2023-01-26 23:36] VITALS: BP 104/54; PULSE 75; O2SAT 95
--- NOTE | 2023-01-27 01:46 | ERPHSYRPT ---
- Events Date: 01/26/23 Time Seen by Provider: 23:35 Reason for Code Rapid: full arrest Pre-Event Complaints: found unresponsive CPR initiated prior to MD arrival: Yes Physician Note: Bushra zepeda called overhead, ER staff responded. When we got to the room CPR was underway. Patient was found unresponsive and had no issues prior to being found. Initial rhythm was Vfib so he was shocked w/ 360J. CPR continued and next check showed asystole so Epi was given. Several rounds of CPR performed w/ the rest of the rhythm checks being PEA requiring Epi. At 30min of CPR I called the code due to medical futility. I met w/ family after the events.
[2023-01-27] MEDS ORDERED: Coreg 3.125 MG PO SCH (10:00)
[2023-01-27] MEDS ORDERED: Zestril 5 MG PO SCH (10:00)
[2023-01-27] MEDS ORDERED: Lasix 40 MG/4 ML IV SCH (10:00)
--- NOTE | 2023-02-11 00:26 | PCM.DS ---
Discharge Summary Date of Admission: 01/26/23 17:36 Date of Discharge: 01/27/2023 Admitting Physician: VINICIUS HENAO Primary Care Provider: RAUL ROSALES Allergies Allergies No Known Drug Allergies Allergy (Verified 01/26/23 14:11) Hospital Summary - Hospital Course Hospital Course: Pt. admitted to hospital for CHF and altered mental status, Pt. admitted to floor and coded before I could see him. - Vitals & Intake/Output Vital Signs: Vital Signs Temperature 97.2 F 01/26/23 23:10 Pulse Rate 75 01/26/23 23:10 Respiratory Rate 23 01/26/23 23:10 Blood Pressure 104/54 01/26/23 23:10 O2 Sat by Pulse Oximetry 95 01/26/23 23:10 - Lab Result Diagrams: 01/26/23 14:25 01/26/23 14:25 Micro Results-Entire Visit: Microbiology 01/26/23 16:27 Urine Culture - Final Catherized MIXED ONELIA; 3 OR MORE TYPES. NO PREDOMINANT ORGANISM. NO FURTHER WORKUP. PLEASE RESUBMIT IF CLINICALLY INDICATED. - Procedures and Test Procedures and Tests throughout Hospitalization: Therapy Orders & Screens 01/26/23 15:51 Oxygen NASAL CANNULA 2 lpm Comment: Diagnosis: CHF 01/26/23 19:26 OT Screen per Nursing Assess ONCE Comment: Protocol Order Physician Instructions: Greater than 3 points order OT Admission Screening Reason For Exam: Triggered on Admission Diagnosis: CHF; anemia; coumadin toxicity; dementia Open Wound/Cellutlitis/Pressure Ulcers: No Acute Fx/ORIF/Change in wt bearing status: No Severe MUSCULOSKELETAL pain: No ADL Dysfunction: Yes Acute CVA w/Hemiparesis/Hemiplegia: No Decreased Functional Mobility/Strength: Yes Sprain/Strain: No Acute Post-op Mobility Dysfunction: No Total Points: 4 PT Screen per Nursing Assess ONCE Comment: Protocol Order Physician Instructions: Greater than 3 points order PT Admission Screenin Reason For Exam: Triggered on Admission Diagnosis: CHF; anemia; coumadin toxicity; dementia Open Wound/Cellutlitis/Pressure Ulcers: No Acute Fx/ORIF/Change in wt bearing status: No Severe MUSCULOSKELETAL pain: No ADL Dysfunction: Yes Acute CVA w/Hemiparesis/Hemiplegia: No Decreased Functional Mobility/Strength: Yes Sprain/Strain: No Acute Post-op Mobility Dysfunction: No Total Points: 4 ST Screen per Nursing Assess ONCE Comment: Protocol Order Physician Instructions: Greater than [address] Admission Screening Reason For Exam: Triggered on Admission Diagnosis: CHF; anemia; coumadin toxicity; dementia CVA/Dyshpagia/Aphasia: No Cognitive Deficits: Yes Dehydration/Nutrition Deficit: Yes Reflux: No Oral-Motor Difficulties: No Pneumonia: No Retirement Resident: No Total Points: 8 Discharge Exam General Appearance: severe distress (I did not examine the patient, as he before I saw him) Final Diagnosis/Problem List - Final Discharge Diagnosis/Problem (1) Chronic diastolic CHF (congestive heart failure) Status: Acute Code(s): I50.32 - CHRONIC DIASTOLIC (CONGESTIVE) HEART FAILURE (2) Coumadin toxicity Status: Acute Code(s): T45.511A - POISONING BY ANTICOAGULANTS, ACCIDENTAL, INIT - Discharge Discharge Date: 01/27/23 Disposition: Condition: Prescriptions: No Action Dorzolamide HCl/Timolol Maleat [Dorzolamide-Timolol Eye Drops] 1 drop OP BID Metformin HCl 500 mg [Glucophage 500 MG] 500 mg PO BID Potassium Chloride 10 mg PO DAILY Furosemide 20 mg [Lasix 20 mg] 20 mg PO DAILY Carvedilol 3.125 mg [Coreg 3.125 MG] 3.125 mg PO BID PANTOPRAZOLE 40 mg Tablet [Protonix 40MG Tablet] 40 mg PO DAILY #30 tablet Warfarin Sodium 1 mg [Jantoven] 1 mg PO UD #60 tablet Warfarin Sodium 6 mg PO DAILY #30 tablet Latanoprost [Xalatan] 1 drop OP HS Follow up with: RAUL ROSALES MD [Primary Care Provider] -
== END 2023-01-27 00:06 | disposition expired ==
LOC: ED 14:03 → MED SURG 17:36
PROVIDERS: ADMIT Family Medicine; ATTEND Family Medicine
DX: I11.0 Hypertensive heart disease with heart failure (principal); I50.32 Chronic diastolic (congestive) heart failure; I48.91 Unspecified atrial fibrillation; E11.9 Type 2 diabetes mellitus without complications; R44.3 Hallucinations, unspecified; T45.511A Poisoning by anticoagulants, accidental (unintentional), initial encounter; Z79.01 Long term (current) use of anticoagulants; Z79.899 Other long term (current) drug therapy; Z20.828 Contact with and (suspected) exposure to other viral communicable diseases
CPT/HCPCS: 0241U; 36000; 36415; 51702; 70450; 71045; 80053; 80307; 81001; 82077; 82140; 82947; 83605; 83735; 83880; 84134; 84443; 84484; 85025; 85610; 85730; 87086; 93005; 93268; 94762; 94799; 96360; 96361; 96374; 96375; 96376; 99285; G0378; 80143; 80179; J1940; J2060